=== PATIENT | male | born 1990 | race Caucasian/White ===

== ENCOUNTER 2016-07-08 23:43 | Emergency (ER) | payer BC, OTHER ==
[~2016-07-08] VITALS: Ht 175.3 cm; Wt 108.2 kg
[2016-07-08 23:47] VITALS: TEMP 36.9; Ht 175.3 cm; Wt 108.2 kg
[2016-07-09] MEDS ORDERED: SODIUM CHLORIDE 0.9% 1000ML 1,000 ML IV STA (00:41)
[2016-07-09 01:17] LABS: HEMATOCRIT 39.8 % (42-52); MEAN CELL VOLUME 81.4 fL (80-100); MEAN CORPUSCULAR HEMOGLOBIN 28.2 pg (25-34); MEAN CORPUSCULAR HGB CONC 34.7 g/dl (32-36); MEAN PLATELET VOLUME 9.3 fL (7.4-10.4); PLATELET COUNT 259 K/uL (130-400); RED BLOOD COUNT 4.89 M/uL (4.7-6.1); WHITE BLOOD COUNT 13.09 K/uL (4.8-10.8)
[2016-07-09] MEDS ORDERED: PRLSR20 PO (01:27)
[2016-07-09] MEDS ORDERED: CITA40TA12 PO (01:28)
[2016-07-09 01:38] LABS: BUN/CREATININE RATIO 11.4 (10-20); CALCIUM 8.8 mg/dl (8.5-10.1); CREATININE 0.97 mg/dl (0.60-1.40); POTASSIUM 4.3 mmol/L (3.5-5.1)
[2016-07-09 01:48] LABS: ALB/GLOB RATIO 0.8 (0.9-2); THYROID STIMULATING HORMONE 2.46 uIu/ml (0.300-4.500)
[2016-07-09 02:01] LABS: BASO ABS # 0.37 K/uL (0-0.2); BASOPHIL % 2.8 % (0-2); COMPLETE YES; EOSINOPHIL % 3.7 %; LYMPH ABS # 2.79 K/uL (1.2-3.4); LYMPHOCYTE % 21.3 %; MYELOCYTE % 0.9 %; NEUTROPHILS % 66.7 %
--- NOTE | 2016-07-09 02:12 | EMERGENCY ROOM VISIT NOTE ---
History First contact with patient: 23:55 Chief Complaint: FEVER Stated Complaint: HIGH FEVER,SORE THROAT FOR A WEEK History of Present Illness The patient is a 25 year old male who presents to the Emergency Department by private vehicle for evaluation of his fever, sore throat, and dizziness. He reports that he has felt not well since Monday. He started noticed fevers on Monday. He reports that he has developed a temperature in excess of 104F. He isn't having a sore throat as well as body aches and pains. The patient's fever has been responsive to ibuprofen and Tylenol. This evening, after an argument with his girlfriend, he became extremely dizzy. He reports that he has not felt right since. He's had persistent lightheadedness. He reports his daughter was sick with upper respiratory symptoms recently. He reports a history of anxiety and depression only. He denies any headaches, blurry vision , double vision, slurred speech, facial droop, unilateral weakness/numbness, chest pain, palpitations, short of breath, hemoptysis, nausea, vomiting, or abdominal pain. He rates his current discomfort as a 4/10. Review of Systems A complete 10-point Review of Systems was discussed with the patient, with pertinent positives and negatives listed in the History of Present Illness. All remaining Review of Systems questions can be considered negative unless otherwise specified. Social History Smoking Status: Never Smoker Smokeless Tobacco Use: No Drug Use: none Housing Status: lives with family Current/Historical Medications Scheduled Citalopram Hydrobromide (Celexa), 40 MG PO DAILY Omeprazole (Prilosec), 20 MG PO DAILY Allergies Coded Allergies: Amoxicillin (Verified Allergy, Mild, Hives, 07/08/16) Physical Exam Vital Signs Date Time Temp Pulse Resp B/P Pulse Ox O2 Delivery O2 Flow Rate FiO2 07/09/16 02:15 112 19 168/108 96 07/09/16 01:43 112 19 168/108 96 Room Air 07/09/16 00:56 117 19 162/105 97 Room Air 07/08/16 23:47 36.9 124 20 188/97 96 Room Air Pain Rating (0-10): 4 Physical Exam VITAL SIGNS - Vital signs and nursing notes were reviewed. GENERAL - Well nourished, well developed 25-year-old male in no acute distress. Pt communicates well with provider and answers questions appropriately. SKIN - Without rash. HEAD - NC/AT with no obvious deformities. EYES - PERRL with EOMI bilaterally. Sclera without injection. Palpebral conjunctiva pink and moist. EARS - No deformities of external structures noted on gross examination bilaterally. No pain elicited with palpation of the tragus bilaterally. External auditory canals without discharge or otorrhea. Tympanic membranes pearly portillo without retraction or bulging. No fluid or purulent material visualized behind the TM. Handle of malleus, umbo, cone of light, pars tensa/ flaccid all easily visualized. NOSE - Midline and without cyanosis. No purulent drainage noted. Nasal mucosa without mucus discharge. MOUTH/OROPHARYNX - Without perioral cyanosis. Buccal mucosa pink and moist and without leukoplakia. Tongue midline with equal elevation of palate bilaterally. No tonsillar hypertrophy, erythema, or exudates noted. Good dentition noted. NECK - Neck with FROM. Supple to palpation. No lymphadenopathy noted. No nuchal rigidity. LUNGS - Chest wall symmetric without accessory muscle use, intercostals retractions, or central cyanosis. Normal vesicular breath sounds CTA B/L. No wheezes, rales, or rhonchi appreciated. CARDIAC - RRR with S1/S2. No murmur, rubs, or gallops appreciated. ABDOMEN - Abdominal contour flat without pulsations or visible masses. BS normoactive all four quadrants. No tenderness, palpable masses, hepatosplenomegaly, or ascites noted. Medical Decision & Procedures Laboratory Results 07/09/16 00:50 Red Blood Count 4.89, Mean Corpuscular Volume 81.4, Mean Corpuscular Hemoglobin 28.2, Mean Corpuscular Hemoglobin Concent 34.7, Mean Platelet Volume 9.3 07/09/16 00:50 Test 07/09/16 00:35 07/09/16 00:50 Influenza Type A Antigen Neg for Influ A (NEG) Influenza Type B Antigen Neg for Influ B (NEG) White Blood Count 13.09 K/uL (4.8-10.8) Red Blood Count 4.89 M/uL (4.7-6.1) Hemoglobin 13.8 g/dL (14.0-18.0) Hematocrit 39.8 % (42-52) Mean Corpuscular Volume 81.4 fL (80-100) Mean Corpuscular Hemoglobin 28.2 pg (25-34) Mean Corpuscular Hemoglobin Concent 34.7 g/dl (32-36) Platelet Count 259 K/uL (130-400) Mean Platelet Volume 9.3 fL (7.4-10.4) RDW Standard Deviation 39.2 fL (36.4-46.3) RDW Coefficient of Variation 13.0 % (11.5-14.5) Neutrophils % (Manual) 66.7 % Lymphocytes % (Manual) 21.3 % Monocytes % (Manual) 4.6 % Eosinophils % (Manual) 3.7 % Basophils % (Manual) 2.8 % (0-2) Myelocytes % 0.9 % Neutrophils # (Manual) 8.73 K/uL (1.4-6.5) Total Absolute Neutrophils 8.73 K/uL (1.4-6.5) Lymphocytes # (Manual) 2.79 K/uL (1.2-3.4) Total Absolute Lymphocytes 2.79 K/uL (1.2-3.4) Monocytes # (Manual) 0.60 K/uL (0.11-0.59) Eosinophils # (Manual) 0.48 K/uL (0-0.5) Basophils # (Manual) 0.37 K/uL (0-0.2) Myelocytes # 0.12 K/uL (0-0) Red Blood Cell Morphology Unremarkable Anion Gap 9.0 mmol/L (3-11) Est Creatinine Clear Calc Drug Dose 141.1 ml/min Estimated GFR () 125.2 Estimated GFR (Non- 108.1 BUN/Creatinine Ratio 11.4 (10-20) Calcium Level 8.8 mg/dl (8.5-10.1) Total Bilirubin 0.2 mg/dl (0.2-1) Aspartate Amino Transf (AST/SGOT) 13 U/L (15-37) Alanine Aminotransferase (ALT/SGPT) 27 U/L (12-78) Alkaline Phosphatase 100 U/L (45-117) Total Protein 7.9 gm/dl (6.4-8.2) Albumin 3.6 gm/dl (3.4-5.0) Globulin 4.3 gm/dl (2.5-4.0) Albumin/Globulin Ratio 0.8 (0.9-2) Thyroid Stimulating Hormone (TSH) 2.460 uIu/ml (0.300-4.500) Date/Time Source Procedure Growth Status 07/09/16 00:35 Throat Group A Streptococcus Screen - Final SPECIMEN NEGATIVE FOR GROUP A BETA ST... Complete 07/09/16 00:35 Throat Group A Streptococcus Screen ([facility]) - Final NO GROUP A BETA STREP ISOLATED. Complete Medications Administered Medications (Trade) Dose Ordered Sig/Haroldo Route Start Time Stop Time Status Last Admin Dose Admin Sodium Chloride (Nss 1000ml) 1,000 ml @ 999 mls/hr Q1H1M STAT IV 07/09/16 00:41 07/09/16 01:41 DC 07/09/16 00:54 999 MLS/HR ED Course Patient was seen and evaluated by myself. Labs were drawn, saline lock in place. Influenza and strep swabs were obtained. Patient was hydrated with a 1000 mL normal saline bolus. Laboratory results demonstrate no acute leukocytosis, worrisome anemia, or bandemia. The patient has no significant electrolyte abnormalities. Rapid strep and RSV were negative. Patient was reevaluated and reports feeling much better at this time. The patient was instructed to follow-up with his primary care provider from today's visit. He was educated on worrisome symptoms for return visit to the emergency department. Patient discharged home afebrile and in good condition. Medical Decision Given the patient's presentation and stated complaints, I did elect to perform the above-mentioned workup. The patient presents today with a febrile illness. He has no fever on presentation. His exam is otherwise unremarkable. He has no meningeal findings. Influenza and strep were negative. Patient feels much better at this time. The patient was encouraged to follow-up with his primary care provider from today's visit. He was educated on worrisome symptoms for return visit to the emergency department. Patient discharged home in good condition. In the evaluation and treatment of this patient, the following differential diagnoses were considered: Strep, mono, pneumonia, bronchitis, meningitis, encephalitis, viral URI, amongst others. Impression Primary Impression: Febrile illness Additional Impressions: Sore throat Dizziness Departure Information Dispostion Home / Self-Care Condition GOOD Referrals No Doctor, Assigned (PCP) Patient Instructions My [facility] Additional Instructions You have been seen in the emergency department today for a febrile illness. Continue your [id number] medications as discussed. For pain/fever control, you can use the following [id number]-kepawpz medicines ( if >12 yo): - Regular strength (325mg/tab) Tylenol (acetaminophen) 2 tabs every 4-6 hours as needed. Do not exceed 12 tablets in a 24 hour period. Avoid taking more than 4 grams (4000 mg) of Tylenol per day. This includes any other sources of acetaminophen you may take on a regular basis. - Regular strength (200 mg/tab) Advil (ibuprofen) 1-2 tabs every 4-6 hours as needed. Do not exceed a dose of 3200 mg per day. Follow-up with your primary care provider for continued symptom management as well as blood pressure recheck. Return for any changing or worsening symptoms. Problem Qualifiers
[2016-07-09 02:15] VITALS: BP 168/108; PULSE 112; O2SAT 96
== END 2016-07-09 02:19 | disposition home or self-care (01) ==
LOC: C.EDB 23:45
DX: J02.9 Acute pharyngitis, unspecified (principal); R42 Dizziness and giddiness; Z79.899 Other long term (current) drug therapy; Z88.1 Allergy status to other antibiotic agents

== ENCOUNTER 2017-06-09 02:26 | Emergency (ER) | payer BC, OTHER ==
[~2017-06-09] VITALS: Ht 172.7 cm; Wt 110.9 kg
[~2017-06-09 02:26] MED LIST: CITA40TA12 PO; PRLSR20 PO
[2017-06-09 02:28] VITALS: TEMP 37; Ht 172.7 cm; Wt 110.9 kg
--- NOTE | 2017-06-09 02:46 | EMERGENCY ROOM VISIT NOTE ---
History Report prepared by Francisco: Margaux Maldonado Under the Supervision of: Dr. Jung Delcid M.D. First contact with patient: 02:34 Chief Complaint: FEVER Stated Complaint: REALLY HIGH FEVER - 106 History of Present Illness The patient is a 26 year old male who presents to the Emergency Room with complaints of a fever beginning 24 hours ago. The patient states that he was febrile at 105.4. He states that he took 3 tablets of Motrin and 2 tablets of Tylenol for his symptoms. He states that he has had a headache, cough, body aches and chills, but denies having nausea, vomiting, and back pain. The patient states that he did not get a flu shot this year, and denies being on antibiotics recently. Source of History: patient Onset: 24 hours ago Position: other (global) Quality: other (fever) Associated Symptoms: + chills, + headache, + cough, No nausea, No vomiting, No back pain Note: additional symptom: body aches Review of Systems See HPI for pertinent positives & negatives. A total of 10 systems reviewed and were otherwise negative. Family History FHx: heart disease Hypertension Social History Smoking Status: Never Smoker Drug Use: none Marital Status: in relationship Housing Status: lives with family Current/Historical Medications Scheduled Citalopram Hydrobromide (Celexa), 40 MG PO DAILY Oseltamivir (Tamiflu), 75 MG PO BID Scheduled PRN Acetaminophen (Tylenol), 1,000 MG PO Q4 PRN for Pain or Fever Ibuprofen (Advil), 200-600 MG PO Q4H PRN for Pain or Fever Omeprazole (Prilosec), 20 MG PO DAILY PRN for Heartburn Allergies Coded Allergies: Amoxicillin (Verified Allergy, Mild, Hives, 06/09/17) Physical Exam Vital Signs Date Time Temp Pulse Resp B/P (MAP) Pulse Ox O2 Delivery O2 Flow Rate FiO2 06/09/17 03:06 118 20 169/100 97 06/09/17 02:28 37.0 127 20 180/77 95 Room Air Physical Exam GENERAL: Patient is well appearing and in minimal acute distress. HEENT: No acute trauma, normocephalic atraumatic, mucous membranes moist, nasal rhinorrhea bilaterally, no scleral icterus. NECK: No stridor, no adenopathy, no meningismus, trachea is midline. LUNGS: No dyspnea. Clear to auscultation and equal bilaterally. No wheeze, no rhonchi. HEART: Mildly tachycardic, normal rhythm. No murmurs, rubs, gallops appreciated. ABDOMEN: Soft, nontender, bowel sounds positive, no masses appreciated, no peritonitis. BACK: No midline tenderness, no CVA tenderness EXTREMITIES: Normal motion all extremities, no cyanosis, no edema. NEUROLOGIC: Alert and oriented, no acute motor or sensory deficits, no focal weakness, cranial nerves grossly intact. SKIN: No rash, no jaundice, mild diaphoresis. Medical Decision & Procedures Medications Administered Medications (Trade) Dose Ordered Sig/Haroldo Route Start Time Stop Time Status Last Admin Dose Admin Oseltamivir Phosphate (Tamiflu Cap) 75 mg NOW STAT PO 06/09/17 02:53 06/09/17 03:00 DC 06/09/17 03:01 75 MG ED Course 0245: The patient was evaluated in room B8. A complete history and physical exam was performed. 0330: Reevaluated the patient. Discussed results and discharge instructions: He verbalized understanding and agreement. The patient is ready for discharge. Medical Decision Differential: Viral, Pharyngitis, Cellulitis, Pneumonia, Influenza, Meningitis, Sepsis, Bacteremia, UTI/Pyelonephritis, Endocrine, Toxicologic, amongst other pathologies entertained. 26 yr old male with fevers, chills, body aches, cough, sore throat, runny nose, headache over last 24 hours consistent with influenza. Given classic flu like nature without findings of meningitis, pneumonia, intrabdominal infection, strep , abscess or other acute cause of fever I feel this is likely influenza. I do not feel testing necessary. Given symptoms seems reasonable starting Tamiflu as he has child with cardiac condition and wants to limit symptoms as much as possible. Reviewed symptoms requiring RTED. Medication Reconcilliation Current Medication List: was personally reviewed by me Blood Pressure Screening Patient's blood pressure: Elevated blood pressure Blood pressure disposition: Elevated BP felt to be situational Impression Primary Impression: Influenza Scribe Attestation The scribe's documentation has been prepared under my direction and personally reviewed by me in its entirety. I confirm that the note above accurately reflects all work, treatment, procedures, and medical decision making performed by me. Departure Information Dispostion Home / Self-Care Prescriptions Oseltamivir (Tamiflu) 75 Mg Cap 75 MG PO BID, #10 CAP Prov: Jung Delcid M.D. 06/09/17 Referrals No Doctor, Assigned (PCP) Forms HOME CARE DOCUMENTATION FORM, IMPORTANT VISIT INFORMATION Patient Instructions ED Flu, My [facility] Additional Instructions Keep well hydrated, use Tylenol/Motrin as needed. Your blood pressure was elevated during this visit. This is quite common in many people who are being evaluated in the Emergency Department for many reasons. However, it is important that you have your Primary Care Provider recheck your blood pressure and discuss whether treatment will be needed. termite helper elevated blood pressure can lead to strokes, heart attacks, kidney failure amongst other medical issues. If you develop severe headaches, chest pain, weakness in arms or legs, or other concerning symptoms call 911.
[2017-06-09] MEDS ORDERED: ACET-1256 PO (02:52)
[2017-06-09] MEDS ORDERED: IBUP-1050 PO (02:52)
[2017-06-09] MEDS ORDERED: OSELTAMIVIR PHOSPHATE 75 MG CAP PO STA (02:53)
[2017-06-09] MEDS ORDERED: OSEL75CA12 PO (02:56)
[2017-06-09 03:06] VITALS: BP 169/100; PULSE 118; O2SAT 97
== END 2017-06-09 03:07 | disposition home or self-care (01) ==
LOC: C.EDB 02:27
DX: J11.1 Influenza due to unidentified influenza virus with other respiratory manifestations (principal); Z82.49 Family history of ischemic heart disease and other diseases of the circulatory system; Z88.1 Allergy status to other antibiotic agents

== ENCOUNTER 2024-08-11 18:05 | Inpatient (IN) ==
--- NOTE | 2024-08-11 19:03 | Emergency Department Note ---
Impression & Plan Diverticulitis, Uncontrolled pain ED Provider Note CHIEF COMPLAINT: Abdominal pain HISTORY OF PRESENTING ILLNESS: Patient is a 33-year-old male who presents to the emergency department today for evaluation of abdominal pain. He reports pain in the left lower quadrant. He does have a history of diverticulitis, he states this feels similar to his typical flareups but worse than normal. He states yesterday he was dehydrated and not drinking much. He denies any recent food changes. He reports an episode of diarrhea 24 hours ago but has not had a bowel movement since. He denies any nausea and vomiting. He denies chest pain, sob, breathing difficulties, abdominal pain, headache, fevers/chills, blood in stool or urine, any recent illness, or any recent travel. REVIEW OF SYSTEMS: See HPI for pertinent positives and pertinent negatives. ALLERGIES: Amoxicillin, Vicodin (not a true allergy, causes nausea) MEDICATIONS: See below PAST MEDICAL HISTORY: See below PHYSICAL EXAM: VITAL SIGNS - Vital signs and nursing notes were reviewed. GENERAL -30-year-old male appearing his stated age who is in no acute distress. Communicates well with provider and answers questions appropriately. EYES - PERRL with EOMI bilaterally. MOUTH/OROPHARYNX - Without perioral cyanosis. Buccal mucosa pink and moist and without leukoplakia. LUNGS - Chest wall symmetric without accessory muscle use, intercostals retractions, or central cyanosis. Normal vesicular breath sounds CTA B/L. No wheezes, rales, or rhonchi appreciated. CARDIAC - RRR with S1/S2. No murmur, rubs, or gallops appreciated. ABDOMEN - Abdominal contour is without pulsations or visible masses. Negative Cullens or Kenney Turners Signs. BS normoactive all four quadrants. Increase tenderness to palpation appreciated left lower quad. No guarding. No rebound Tenderness. Negative Vovsings. Negative Florence. No palpable masses, hepatosplenomegaly, or ascites noted. DIFFERENTIAL DIAGNOSIS: Differential diagnosis includes appendicitis, diverticulitis, bowel obstruction, inflammatory bowel disease, renal colic, PUD, biliary pathology, pancreatitis, mesenteric ischemia, aortic pathology, infection, genitourinary, UTI, perforated viscus, among others. ED COURSE AND MEDICAL DECISION MAKING: HISTORY FROM INDEPENDENT HISTORIAN: History was provided by the patient and his father who is at bedside. I examined the patient for complaints of abdominal pain with a history of diverticulitis. A physical exam and history were performed. Nursing notes, EMR, and medication list were personally reviewed. MEDICATIONS GIVEN: An IV lock was placed. The patient was given Tylenol 1 g IV and had improvement with pain. Within an hour the patient reports the pain returned. I considered the use of narcotics on this patient and give the patient morphine 4 mg and had significant improvement with the pain. The patient was also given Zofran 4 mg with improvement in nausea. The patient was also given 2 L of normal saline. The patient was then given 10mg of toradol due to the pain worsening again. Patient was started on Cipro 400mg IV and Flagyl IV in the ED. MONITOR: Continuous quality assurance monitor: Order was placed for continuous quality assurance monitor. Patient was placed on the quality assurance monitor and continuous pulse ox. Patient was noted to be in normal sinus rhythm at an initial rate of 90 bpm per my interpretation. INTERPRETATION OF LABS: An IV lock was placed and labs were drawn. I interpreted the labs with full lab results as below in the lab section of this note. Laboratory results pertinent to the emergent complaint are discussed in the MDM section below. The patient was advised to follow up with their PCP and/or specialist(s) for further outpatient monitoring and management of any abnormal results. There was no anemia, thrombocytopenia. The patient's white count was 18.06. Patient sodium was 133, chloride 94 BUN 24. He was given 2 L of normal saline. The urinalysis was negative for leukocytes, nitrates, bacteria. INTERPRETATION OF IMAGING: Imaging studies were interpreted by myself and read by radiology as per the imaging section of this note. The patient was advised to follow up with their PCP and/or specialist(s) for further outpatient management of any non-emergent abnormal findings. The CT scan of the abdomen and pelvis showed colonic and sigmoid sclerosis with mild sigmoid diverticulitis without abscess. CHRONIC MEDICAL/SOCIAL CONDITIONS AFFECTING CARE: No social concerns were identified as barriers to patients care. ESCALATION OF CARE CONSIDERED: I considered admission on this patient due to uncontrolled pain. CONSULTATIONS: I had a meaningful discussion about this patient with Dr. Guzman who agrees with my assessment and the treatment plan. SUMMARY: Patient was evaluated in the emergency department for complaints of abdominal pain in the left lower quad that had moved to the mid groin. Patient was in a significant amount of pain rating it at an 8 out of 10. He was treated with 1 g of Tylenol IV which was effective for short period of time. Patient was then given 4 mg of morphine that was also effective but only for short time. Patient wanted to try something less the morphine so he had 10 mg of Toradol IV that was also effective but again only for short time. There was no anemia, thrombocytopenia. The patient's white count was 18.06. Patient sodium was 133, chloride 94 BUN 24. He was given 2 L of normal saline. The urinalysis was negative for leukocytes, nitrates, bacteria. The CT scan of the abdomen and pelvis showed colonic and sigmoid sclerosis with mild sigmoid diverticulitis without abscess. I had the hospitalist paged for admission for this patient. At 2330 I signed the patient out to GILDARDO Smith. At the time of signout we were waiting for the hospitalist to call back for admission. The patient is to have close outpatient follow-up with a recheck of their symptoms. To return to the ER sooner for any significantly changing or worsening symptoms. The patient was educated on the treatment plan and the discharge instructions. The patient was discharged home in stable condition and verbalized understanding of all discharge instructions and treatment plan. DIAGNOSIS: Diverticulitis TREATMENT PLAN/DISCHARGE INSTRUCTIONS: Admit to [facility] Past Med/Surg History Problem List (Updated 08/12/24 @ 13:03 by GILDARDO Ferrari) Diverticulitis (Acute) Uncontrolled pain (Acute) Acute diverticulitis Hypertension Stomach problems (Acute) Medical History (Updated 08/12/24 @ 13:03 by GILDARDO Ferrari) No pertinent past medical history Surgical History (Updated 06/04/24 @ 13:27 by Zeferino Velasco LPN) H/O anterior cruciate ligament surgery Family History Other No significant family history Social History Smoking Status: Never smoker Hx Alcohol Use: Yes Alcohol type: beer and hard liquor Hx Substance Use: No Preferred Language: Uzbek [employer] Service Team Member Required: No Beliefs That Will Affect Care: None Current Living Situation: Spouse current occupational status: employed current occupation: [employer] Other Information That Helps Us Care for You: No Feels Safe at Home: Yes Safety Concerns: Feels Safe At This Time Allergies Allergies Allergy/AdvReac Type Severity Reaction Status Date / Time amoxicillin Allergy Mild Hives Verified 06/04/24 13:01 hydrocodone [From Vicodin] AdvReac Nausea Unverified 06/04/24 13:01 Home Meds Home Medications Medication Instructions Recorded Confirmed omeprazole 20 mg tablet,delayed 20 mg PO DAILY 01/05/18 08/12/24 release dextroamphetamine-amphetamine ER 30 mg PO DAILY PRN adhd 06/05/24 08/12/24 30 mg 24hr capsule,extend release lisinopril 5 mg tablet 5 mg PO DAILY 06/05/24 08/12/24 Results & Data (ED) Vital Signs Vital Signs - 24 hr 08/11/24 18:07 08/11/24 19:00 08/11/24 20:05 Temperature 36.4 C L Temperature Source Oral Pulse Rate 98 H Pulse Rate [Right Brachial] 94 H Pulse Rhythm [Right Brachial] Regular Pulse Strength [Right Brachial] Normal Respiratory Rate 20 19 Respiratory Effort / Characteristics Non-Labored Non-Labored Respiratory Depth Normal Normal Respiratory Pattern Regular Blood Pressure 120/61 Blood Pressure [Right Arm] 140/77 Blood Pressure Mean 80 Blood Pressure Mean [Right Arm] 98 Blood Pressure Position [Right Arm] Lying Pulse Oximetry 100 98 98 Oxygen Delivery Method Room Air Room Air Room Air Sepsis Recent Fever Within 48 Hours No Sepsis New/Unexplained Change in Mental Status No Sepsis Action Taken by Nursing No Action Required 08/11/24 22:00 08/11/24 23:47 08/11/24 23:52 Temperature 36.5 C Temperature Source Oral Pulse Rate 100 H Pulse Rate [Right Brachial] 99 H 98 H Pulse Rhythm [Right Brachial] Regular Pulse Strength [Right Brachial] Normal Respiratory Rate 16 18 Respiratory Effort / Characteristics Non-Labored Non-Labored Spontaneous Respiratory Depth Normal Respiratory Pattern Regular Regular Blood Pressure Blood Pressure [Right Arm] 117/77 119/71 Blood Pressure Mean Blood Pressure Mean [Right Arm] 90 87 Blood Pressure Position [Right Arm] Lying Lying Pulse Oximetry 95 94 Oxygen Delivery Method Room Air Room Air Sepsis Recent Fever Within 48 Hours Sepsis New/Unexplained Change in Mental Status Sepsis Action Taken by Nursing Laboratory Data 08/12/24 06:15 08/12/24 06:15 Lab Results 08/11/24 Range/Units 19:13 WBC 18.06 H (4.8-10.8) K/ul RBC 4.85 (4.70-6.10) M/uL Hgb 13.8 L (14.0-18.0) g/dl Hct 40.1 L (42.0-52.0) % MCV 82.7 (80.0-100.0) fL MCH 28.5 (25.0-34.0) pg MCHC 34.4 (32.0-36.0) g/dL RDW Std Deviation 38.4 (36.4-46.3) fL RDW Coeff of Renetta 12.7 (11.5-14.5) % Plt Count 299 (130-400) K/uL MPV 9.5 (9.4-12.4) fL Immature Gran % (Auto) 1.0 % Neut % (Auto) 71.7 % Lymph % (Auto) 16.9 % V[place] % (Auto) 7.9 % Eos % (Auto) 2.1 % Baso % (Auto) 0.4 % Neut # (Auto) 12.93 H (1.40-6.50) K/uL Lymph # (Auto) 3.06 (1.20-3.40) K/uL V[place] # (Auto) 1.43 H (0.11-0.59) K/uL Eos # (Auto) 0.38 (0.00-0.50) K/uL Baso # (Auto) 0.08 (0.00-0.20) K/uL Immature Gran # (Auto) 0.18 (0.01-0.20) K/uL Sodium 133 L (136-145) mmol/L Potassium 4.0 (3.5-5.1) mmol/L Chloride 97 L (98-107) mmol/L Carbon Dioxide 30 (21-32) mmol/L Anion Gap 6 (3-11) BUN 24 H (6-23) mg/dl Creatinine 1.13 (0.6-1.4) mg/dl Est Cr Clr Drug Dosing 108.6 ml/min eGFR 88.01 BUN/Creatinine Ratio 21.2 H (10-20) Glucose 157 H (70-99(Fasting)) mg/dl Calcium 9.2 (8.6-10.3) mg/dl Total Bilirubin 0.5 (0.2-1.0) mg/dl AST 26 (13-39) U/L ALT 27 (7-52) U/L Alkaline Phosphatase 67 (34-104) U/L Total Protein 6.9 (6.0-8.3) gm/dl Albumin 4.3 (3.4-5.0) gm/dl Globulin 2.6 (2.5-4.0) gm/dl Albumin/Globulin Ratio 1.7 (0.9-2) Lipase 72 (11-82) U/L Administered Medications Pantoprazole Sodium (Protonix) 40 mg in 10 mls @ 5 mls/min IV DAILY ABIGAIL Stop: 09/11/24 08:59 Last Admin: 08/13/24 08:27 Dose: 5 mls/min Documented By: Admin: 08/12/24 08:42 Dose: 5 mls/min Documented By: HRB Ciprofloxacin (Cipro / D5w) 400 mg in 200 mls @ 100 mls/hr IV Q12H ABIGAIL; Protocol Stop: 08/22/24 10:59 Last Infusion: 08/13/24 00:09 Dose: Infused Documented By: Admin: 08/12/24 22:08 Dose: 100 mls/hr Documented By: Infusion: 08/12/24 13:50 Dose: Infused Documented By: Admin: 08/12/24 11:39 Dose: 100 mls/hr Documented By: HRB Metronidazole (Flagyl) 500 mg in 100 mls @ 100 mls/hr IV Q8H ABIGAIL; Protocol Stop: 08/22/24 07:59 Last Admin: 08/13/24 08:27 Dose: 100 mls/hr Documented By: RRMeghana Infusion: 08/13/24 01:17 Dose: Infused Documented By: Admin: 08/13/24 00:09 Dose: 100 mls/hr Documented By: Infusion: 08/12/24 17:25 Dose: Infused Documented By: Admin: 08/12/24 16:20 Dose: 100 mls/hr Documented By: Infusion: 08/12/24 09:51 Dose: Infused Documented By: Admin: 08/12/24 08:42 Dose: 100 mls/hr Documented By: HRB Ketorolac Tromethamine (Ketorolac Tromethamine 15 Mg/Ml Vial) 10 mg IV Q6H PRN PRN Reason: Pain Stop: 08/17/24 02:53 Last Admin: 08/12/24 19:42 Dose: 10 mg Documented By: Admin: 08/12/24 13:43 Dose: 10 mg Documented By: Admin: 08/12/24 06:14 Dose: 10 mg Documented By: LETI Morphine Sulfate (Morphine Sulfate 4 Mg/Ml 1 Ml Carp\Vial) 4 mg IV Q6H PRN PRN Reason: Severe Pain (Scale 7, 8, 9,10) Stop: 08/26/24 02:53 Last Admin: 08/12/24 09:27 Dose: 4 mg Documented By: B Admin: 08/12/24 03:13 Dose: 4 mg Documented By: LETI Oxycodone HCl (Oxycodone Hcl Ir 5 Mg Tab (Immediate Release)) 5 mg PO Q4H PRN PRN Reason: Pain Stop: 08/26/24 10:30 Last Admin: 08/13/24 06:35 Dose: 5 mg Documented By: Admin: 08/13/24 00:32 Dose: 5 mg Documented By: ELAINA Sennosides (Senna 8.6 Mg Tab) 17.2 mg PO QAM ABIGAIL Stop: 09/11/24 15:44 Last Admin: 08/13/24 08:27 Dose: 17.2 mg Documented By: Admin: 08/12/24 15:55 Dose: 17.2 mg Documented By: B Discontinued Medications Sodium Chloride (Nss) 1,000 mls @ 999 mls/hr IV .Q1H1M STA Stop: 08/11/24 20:00 Last Infusion: 08/11/24 20:37 Dose: Infused Documented By: Admin: 08/11/24 19:32 Dose: 999 mls/hr Documented By: RAMIN Acetaminophen (Ofirmev) 1,000 mg in 100 mls @ 400 mls/hr IV NOW STA Stop: 08/11/24 19:14 Last Infusion: 08/11/24 19:53 Dose: Infused Documented By: Admin: 08/11/24 19:32 Dose: 400 mls/hr Documented By: RAMIN Sodium Chloride (Nss) 1,000 mls @ 999 mls/hr IV .Q1H1M ONE Stop: 08/11/24 22:10 Last Infusion: 08/11/24 22:40 Dose: Infused Documented By: Admin: 08/11/24 21:23 Dose: 999 mls/hr Documented By: RAMIN Ciprofloxacin (Cipro / D5w) 400 mg in 200 mls @ 200 mls/hr IV NOW STA Stop: 08/12/24 00:27 Last Infusion: 08/12/24 00:53 Dose: Infused Documented By: Admin: 08/11/24 23:51 Dose: 200 mls/hr Documented By: MARTY Metronidazole (Flagyl) 500 mg in 100 mls @ 100 mls/hr IV NOW STA; Protocol Stop: 08/12/24 00:27 Last Infusion: 08/12/24 00:54 Dose: Infused Documented By: Admin: 08/11/24 23:51 Dose: 100 mls/hr Documented By: MARTY Lactated Ringer's (Lr) 1,000 mls @ 150 mls/hr IV .Q6H40M [facility] Stop: 08/12/24 21:11 Last Infusion: 08/12/24 22:15 Dose: Infused Documented By: Admin: 08/12/24 15:53 Dose: 150 mls/hr Documented By: Infusion: 08/12/24 15:47 Dose: Infused Documented By: Admin: 08/12/24 08:42 Dose: 150 mls/hr Documented By: Infusion: 08/12/24 08:40 Dose: Infused Documented By: Infusion: 08/12/24 03:00 Dose: 150 mls/hr Documented By: Admin: 08/12/24 00:58 Dose: 100 mls/hr Documented By: MARTY Acetaminophen (Ofirmev) 1,000 mg in 100 mls @ 400 mls/hr IV Q8 [facility] Stop: 08/15/24 03:59 Last Infusion: 08/12/24 04:19 Dose: Infused Documented By: Admin: 08/12/24 03:12 Dose: 400 mls/hr Documented By: LETI Magnesium Sulfate/Dextrose (Magnesium Sulfate / D5w) 1 gm in 100 mls @ 50 mls/hr IV Q2H [facility] Stop: 08/12/24 12:14 Last Infusion: 08/12/24 13:50 Dose: Infused Documented By: Admin: 08/12/24 11:39 Dose: 50 mls/hr Documented By: Infusion: 08/12/24 11:39 Dose: Infused Documented By: Admin: 08/12/24 09:30 Dose: 50 mls/hr Documented By: REX Ioversol (Optiray 320 100ml) 90 ml IV ONCE ONE Stop: 08/11/24 20:15 Last Admin: 08/11/24 20:15 Dose: 90 ml Documented By: STEVE Ketorolac Tromethamine (Ketorolac Tromethamine 15 Mg/Ml Vial) 10 mg IV NOW ONE Stop: 08/11/24 22:37 Last Admin: 08/11/24 22:43 Dose: 10 mg Documented By: RAMIN Morphine Sulfate (Morphine Sulfate 4 Mg/Ml 1 Ml Carp\Vial) 4 mg IV NOW STA Stop: 08/11/24 21:11 Last Admin: 08/11/24 21:22 Dose: 4 mg Documented By: RAMIN Ondansetron HCl (Ondansetron Inj 2 Mg/Ml 2 Ml Vial) 4 mg IV NOW STA Stop: 08/11/24 19:01 Last Admin: 08/11/24 19:32 Dose: Not Given Documented By: RAMIN Ondansetron HCl (Ondansetron Inj 2 Mg/Ml 2 Ml Vial) 4 mg IV NOW STA Stop: 08/11/24 21:11 Last Admin: 08/11/24 21:22 Dose: 4 mg Documented By: RAMIN Imaging Data Radiologist's Impression: Abdomen/Pelvis CT 08/11/24 19:00 Exam(s): CT ABDOMEN + PELVIS With Contrast IV Amt: optiray 320 90ml EXAM: CT Abdomen and Pelvis With Intravenous Contrast CLINICAL HISTORY: Reason for exam: abd pain, hx diverticulitis. TECHNIQUE: Axial computed tomography images of the abdomen and pelvis with intravenous contrast. CTDI is 27.81 mGy and DLP is 1475.49 mGy-cm. Automated exposure control was utilized for the study. A dose lowering technique was utilized adhering to the principles of ALARA. CONTRAST: Patient received optiray 320 90ml of IV contrast COMPARISON: CT abdomen/pelvis: 06/05/2024 FINDINGS: Image quality is somewhat degraded by motion artifact. Lung bases: Posteriorly subpleural mild atelectatic changes.. No mass. No consolidation. ABDOMEN: Liver: Mild steatosis. No mass. Gallbladder and bile ducts: Unremarkable. No calcified stones. No ductal dilation. Pancreas: Unremarkable. Absence of pancreatic tail. No mass. No ductal dilation. Spleen: Unremarkable. No splenomegaly. Adrenals: A 1.5 cm small incidental left adrenal adenoma. No right adrenal mass. Kidneys and ureters: Unremarkable. No solid mass. No hydronephrosis. Stomach and bowel: Unremarkable stomach and small bowel. Moderately increased colonic stool volume. Distal colonic/sigmoid diverticulosis coli. Redemonstrates proximal sigmoid wall thickening with perisigmoid fat stranding/mild uncomplicated acute diverticulitis. No obstruction. PELVIS: Appendix: No findings to suggest acute appendicitis. Bladder: A distended urinary bladder. No mass. Reproductive: Unremarkable as visualized. ABDOMEN and PELVIS: Intraperitoneal space: No free air. No significant fluid collection. Bones/joints: No acute fracture. No dislocation. Mild/moderate lumbar levoscoliosis. Soft tissues: Unremarkable. Vasculature: Unremarkable. No abdominal aortic aneurysm. Lymph nodes: Unremarkable. No enlarged lymph nodes. IMPRESSION: Colonic/sigmoid sclerosis with mild sigmoid diverticulitis. No abscess. . Electronically signed by: Dinesh Barraza MD, ABEBA 08/11/24 22:48 PM Discharge Plan Visit Data Chief Complaint: GI Assessment Stated Complaint: DIVERTICULITIS FLARE ED Provider: Neymar Guzman ED Midlevel Provider: Demetra Torres Discharge Problem: Diverticulitis, Uncontrolled pain Patient Disposition: Admitted As Inpatient Condition: Good Discharge Instructions Interventions: ED Discharge Assessment Last Done: 08/12/24 02:30
[2024-08-11 19:26] LABS: Basophils # (auto) 0.08 K/uL (0.00-0.20); Basophils % (auto) 0.4 %; Eosinophils # (auto) 0.38 K/uL (0.00-0.50); Eosinophils % (auto) 2.1 %; Hematocrit (blood only) 40.1 % (42.0-52.0); Hemoglobin 13.8 g/dl (14.0-18.0); Immature Granulocytes # (auto) 0.18 K/uL (0.01-0.20); Lymphocytes # (auto) 3.06 K/uL (1.20-3.40); Lymphocytes % (auto) 16.9 %; Mean Corpuscular Hemoglobin 28.5 pg (25.0-34.0); Mean Corpuscular Hgb Conc 34.4 g/dL (32.0-36.0); Mean Corpuscular Volume 82.7 fL (80.0-100.0); Mean Platelet Volume 9.5 fL (9.4-12.4); Monocytes # (auto) 1.43 K/uL (0.11-0.59); Monocytes % (auto) 7.9 %; Neutrophils # (auto) 12.93 K/uL (1.40-6.50); Neutrophils % (auto) 71.7 %; Platelet Count 299 K/uL (130-400); RDW Coefficient of Variation 12.7 % (11.5-14.5); RDW Standard Deviation 38.4 fL (36.4-46.3); Red Blood Count 4.85 M/uL (4.70-6.10); White Blood Count 18.06 K/ul (4.8-10.8)
[2024-08-11] MEDS: ACETAMINOPHEN 1,000 MG/100 ML VIAL IV STA (19:32)
[2024-08-11] MEDS: ONDANSETRON INJ 2 MG/ML 2 ML VIAL IV STA ×2 (19:32→21:22)
[2024-08-11] MEDS: SODIUM CHLORIDE 0.9% 1,000 ML IV STA (19:32)
[2024-08-11 19:47] LABS: Albumin Globulin Ratio 1.7 (0.9-2); Albumin Level 4.3 gm/dl (3.4-5.0); BUN Creatinine Ratio 21.2 (10-20); Bilirubin,Total 0.5 mg/dl (0.2-1.0); Calcium 9.2 mg/dl (8.6-10.3); Creatinine Clr Calc Pharmacy 108.6 ml/min; Globulin 2.6 gm/dl (2.5-4.0); Total Protein 6.9 gm/dl (6.0-8.3)
[2024-08-11] MEDS: OPTIRAY 320 100ml IV ONE (20:15)
[2024-08-11] MEDS: MoRPHine SULFATE 4 MG/ML 1 ML CARP\\VIAL IV STA (21:22)
[2024-08-11] MEDS: SODIUM CHLORIDE 0.9% 1,000 ML IV ONE (21:23)
[2024-08-11] MEDS: KETOROLAC TROMETHAMINE 15 MG/ML VIAL IV ONE (22:43)
--- NOTE | 2024-08-11 22:49 | CT Scan Report ---
Exam(s): CT ABDOMEN + PELVIS With Contrast IV Amt: optiray 320 90ml EXAM: CT Abdomen and Pelvis With Intravenous Contrast CLINICAL HISTORY: Reason for exam: abd pain, hx diverticulitis. TECHNIQUE: Axial computed tomography images of the abdomen and pelvis with intravenous contrast. CTDI is 27.81 mGy and DLP is 1475.49 mGy-cm. Automated exposure control was utilized for the study. A dose lowering technique was utilized adhering to the principles of ALARA. CONTRAST: Patient received optiray 320 90ml of IV contrast COMPARISON: CT abdomen/pelvis: 06/05/2024 FINDINGS: Image quality is somewhat degraded by motion artifact. Lung bases: Posteriorly subpleural mild atelectatic changes.. No mass. No consolidation. ABDOMEN: Liver: Mild steatosis. No mass. Gallbladder and bile ducts: Unremarkable. No calcified stones. No ductal dilation. Pancreas: Unremarkable. Absence of pancreatic tail. No mass. No ductal dilation. Spleen: Unremarkable. No splenomegaly. Adrenals: A 1.5 cm small incidental left adrenal adenoma. No right adrenal mass. Kidneys and ureters: Unremarkable. No solid mass. No hydronephrosis. Stomach and bowel: Unremarkable stomach and small bowel. Moderately increased colonic stool volume. Distal colonic/sigmoid diverticulosis coli. Redemonstrates proximal sigmoid wall thickening with perisigmoid fat stranding/mild uncomplicated acute diverticulitis. No obstruction. PELVIS: Appendix: No findings to suggest acute appendicitis. Bladder: A distended urinary bladder. No mass. Reproductive: Unremarkable as visualized. ABDOMEN and PELVIS: Intraperitoneal space: No free air. No significant fluid collection. Bones/joints: No acute fracture. No dislocation. Mild/moderate lumbar levoscoliosis. Soft tissues: Unremarkable. Vasculature: Unremarkable. No abdominal aortic aneurysm. Lymph nodes: Unremarkable. No enlarged lymph nodes. IMPRESSION: Colonic/sigmoid sclerosis with mild sigmoid diverticulitis. No abscess. . Electronically signed by: Dinesh Barraza MD, DABR 08/11/24 22:48 PM
[2024-08-11] MEDS: metroNIDAZOLE 500 MG/100 ML BAG IV STA (23:51)
[2024-08-11] MEDS: CIPROFLOXACIN / D5W 400 MG/200 ML BAG IV STA (23:51)
--- NOTE | 2024-08-12 00:03 | History & Physical Report ---
Date of Service August 12, 2024 Assessment & Plan (1) Acute diverticulitis: (2) Uncontrolled pain: (3) Hypertension: Plan Patient is a 33-year-old male with past medical history of hypertension and GERD. He presented due to upper quadrant abdominal pain and was found to have acute diverticulitis. He is being admitted due to uncontrolled pain. #Diverticulitis/uncontrolled pain - CTAP revealed mild sigmoid diverticulitis, no abscess. Leukocytosis with white count 18.06, neutrophil predominance. Mild tachycardia (HR 110 admission), otherwise VSS and afebrile. - Pain controlled with scheduled IV Tylenol, Toradol 10 Mg IV as needed, morphine 2/4 Mg IV for breakthrough pain - 2L NSS in ED; continue fluid resuscitation with LR at 100 mL/hour - Clear liquid diet, advance as tolerated - Zofran as needed - Continue ciprofloxacin and Flagyl IV started in ED - trend CBC #HTN - stable - Holding lisinopril #GERD - transition PO PPI to IV #ADHD - hold Adderall with bowel rest - pt takes prn VTE ppx: SCDs, low risk Dispo: med surg Admission and Anticipated Discharge Date Admission Date: 08/11/24 History of Present Illness Chief Complaint: GI assessment Primary Care Provider: Kendra Lau DO Patient is a 33-year-old male with past medical history of hypertension and GERD. He presented due to upper quadrant abdominal pain and was found to have acute diverticulitis. He is being admitted due to uncontrolled pain. Patient seen at bedside with his father in law present. He stated at 230 this afternoon he developed sudden onset sharp achy pain of his lower abdomen right below his umbilicus behind his groin. This is typically where he has pain with a diverticulitis flareup. He stated the pain with this flareup is more severe than previous. He stated this flareup feels different than previous as typically it is gradual and dull and with diarrhea. He stated he has not had a bowel movement in approximately 24 hours and feels mildly constipated. He denies any blood in stool with previous bowel movement. He does endorse intermittent nausea that is currently improved. Pain is currently improved but present. He denies any dizziness, lightheadedness, chest pain, shortness of breath. He denies nicotine or daily alcohol use. He does not use oxygen at baseline. He wishes to be full code. Allergies Allergy/AdvReac Type Severity Reaction Status Date / Time amoxicillin Allergy Mild Hives Verified 06/04/24 13:01 hydrocodone [From Vicodin] AdvReac Nausea Unverified 06/04/24 13:01 Home Medications Medication Instructions Recorded Confirmed Type omeprazole 20 mg tablet,delayed 20 mg PO DAILY 01/05/18 08/12/24 History release dextroamphetamine-amphetamine ER 30 mg PO DAILY PRN adhd 06/05/24 08/12/24 History 30 mg 24hr capsule,extend release lisinopril 5 mg tablet 5 mg PO DAILY 06/05/24 08/12/24 History Past Med/Surg History Problem List (Updated 08/12/24 @ 13:03 by GILDARDO Ferrari) Diverticulitis (Acute) Uncontrolled pain (Acute) Acute diverticulitis Hypertension Stomach problems (Acute) Medical History (Updated 08/12/24 @ 13:03 by GILDARDO Ferrari) No pertinent past medical history Surgical History (Updated 06/04/24 @ 13:27 by Zeferino Velasco LPN) H/O anterior cruciate ligament surgery Family History Other No significant family history Social History Smoking Status: Never smoker Hx Alcohol Use: Yes Alcohol type: beer and hard liquor Hx Substance Use: No Preferred Language: German Financial Rep Required: No Beliefs That Will Affect Care: None Current Living Situation: Spouse current occupational status: employed current occupation: [employer] Other Information That Helps Us Care for You: No Feels Safe at Home: Yes Safety Concerns: Feels Safe At This Time Review of Systems Review of Systems: see HPI Physical Exam Physical Exam: The patient is awake, alert and oriented 3, well developed and well nourished, normocephalic and atraumatic, in no acute distress. Non-toxic appearing. HEENT- EOMI, mucous membranes dry. Hearing grossly intact. Heart-normal S1 and S2. No murmurs, rubs or gallops. Lungs-clear bilaterally, no respiratory distress, no accessory muscle use. Abdomen-normal bowel sounds and soft. No ascites noted. Tender to palpation of bilateral lower quadrants. Extremities- no clubbing, cyanosis, or edema. Rheumatologic-normal range of motion. Psychiatric-normal affect. Results & Data Results & Data Vital Signs (Past 12 Hours) Vital Signs Temp Pulse Pulse Resp BP BP Pulse Ox 08/11/24 23:52 100 H 08/11/24 23:47 36.5 C 98 H 18 119/71 94 08/11/24 22:00 99 H 16 117/77 95 08/11/24 20:05 94 H 19 140/77 98 08/11/24 19:00 98 08/11/24 18:07 36.4 C L 98 H 20 120/61 100 O2 Del Method 08/11/24 23:52 08/11/24 23:47 Room Air 08/11/24 22:00 Room Air 08/11/24 20:05 Room Air 08/11/24 19:00 Room Air 08/11/24 18:07 Room Air Laboratory Results Reviewed CBC and CMP Diagnostic Findings reviewed AP CT Medications Administered EDFlagyl 500 Mg IV, ciprofloxacin 400 Mg IV, NSS 2L bolus, Zofran 8 Mg IV, Tylenol 1G IV, morphine 4 Mg IV, Toradol 10 Mg IV ECG Additional Comments: ordered Code Status & VTE Plan VTE Prophylaxis Plan VTE Prophylaxis will be ordered: Yes Supervising Physician Co-Signing Physician Notes I personally saw and examined the patient. I independently reviewed the labs, EKG, imaging, problem list, medication list, past medical history and family history. I verified all mo points and agree with Yoanna Tena PA-C with the following exceptions and/or additions: 33 year old male presents to the ER with left lower quadrant abdominal pain. Recurrent recent history of diverticulitis. No FHx of bowel cancer. Yet to follow up with colonoscopy but has appointment with GI September 09. O/E HS increased rate, regular rhythm, no murmurs, Chest CTAB, Abdo LLQ pain without guarding without rebound tenderness A/P Acute diverticulitis - NPO, IV fluids, IV ciprofloxacin + metronidazole, follow up colonoscopy as outpatient in 6-8 weeks PG Care Time/CCT Total # of Minutes Spent Total Time Spent with Patient: Total time spent is greater than 50% in coordination of care (as documented) at patient's floor/unit and/or counseling patient: Coding Level of Care Code 42077 INT INP/OBS CARE 3/75MIN Diagnoses Acute diverticulitis K57.92 Uncontrolled pain R52 Hypertension I10
[2024-08-12 00:54] LABS: Appearance Urine Clear (Clear); Bilirubin Urine Negative (Negative); Blood Urine Negative (Negative); Color Urine Yellow; Glucose Urine UA Negative (Negative); Ketones Urine Negative (Negative); Leukocyte Esterase Urine Negative (Negative); Nitrite Urine Negative (Negative); Protein Urine Negative (Negative); Specific Gravity Urine 1.038 (1.000-1.030); Urobilinogen Urine Negative (Negative); pH Urine 5.5 (4.5-7.5)
[2024-08-12] MEDS: LACTATED RINGER'S 1,000 ML IV SCH (00:58)
[2024-08-12] MEDS ORDERED: MoRPHine SULFATE 2 MG/ML CARP IV PRN (02:54)
[2024-08-12] MEDS ORDERED: ONDANSETRON INJ 2 MG/ML 2 ML VIAL IV PRN (02:54)
[2024-08-12] MEDS: ACETAMINOPHEN 1,000 MG/100 ML VIAL IV SCH (03:12)
[2024-08-12] MEDS: MoRPHine SULFATE 4 MG/ML 1 ML CARP\\VIAL IV PRN (03:13)
[2024-08-12] MEDS: KETOROLAC TROMETHAMINE 15 MG/ML VIAL IV PRN (06:14)
[2024-08-12 06:33] LABS: Basophils # (auto) 0.05 K/uL (0.00-0.20); Basophils % (auto) 0.3 %; Eosinophils # (auto) 0.21 K/uL (0.00-0.50); Eosinophils % (auto) 1.2 %; Hematocrit (blood only) 34.6 % (42.0-52.0); Hemoglobin 11.8 g/dl (14.0-18.0); Immature Granulocytes % (auto) 0.6 %; Lymphocytes # (auto) 2.66 K/uL (1.20-3.40); Lymphocytes % (auto) 15.5 %; Mean Corpuscular Hemoglobin 28.5 pg (25.0-34.0); Mean Corpuscular Hgb Conc 34.1 g/dL (32.0-36.0); Mean Corpuscular Volume 83.6 fL (80.0-100.0); Mean Platelet Volume 9.7 fL (9.4-12.4); Monocytes # (auto) 1.46 K/uL (0.11-0.59); Monocytes % (auto) 8.5 %; Neutrophils # (auto) 12.71 K/uL (1.40-6.50); Neutrophils % (auto) 73.9 %; Platelet Count 256 K/uL (130-400); RDW Coefficient of Variation 12.7 % (11.5-14.5); RDW Standard Deviation 38.9 fL (36.4-46.3); Red Blood Count 4.14 M/uL (4.70-6.10); White Blood Count 17.19 K/ul (4.8-10.8)
[2024-08-12 06:54] LABS: BUN Creatinine Ratio 18.7 (10-20); Calcium 8.1 mg/dl (8.6-10.3); Creatinine Clr Calc Pharmacy 136.4 ml/min; Magnesium 1.4 mg/dl (1.7-2.4); Potassium 4.2 mmol/L (3.5-5.1)
[2024-08-12] MEDS: PANTOprazole 40 MG/10 ML SYR IV SCH (08:42)
[2024-08-12] MEDS: metroNIDAZOLE 500 MG/100 ML BAG IV SCH (08:42)
[2024-08-12] MEDS: MAGNESIUM SULFATE / D5W 1 GM/100 ML BAG IV SCH (09:30)
[2024-08-12] MEDS ORDERED: ACETAMINOPHEN 500 MG TAB PO PRN (10:31)
[2024-08-12] MEDS: CIPROFLOXACIN / D5W 400 MG/200 ML BAG IV SCH (11:39)
[2024-08-12] MEDS: SENNA 8.6 MG TAB PO SCH (15:55)
--- NOTE | 2024-08-12 16:07 | Hospitalist Progress Note ---
Date of Service August 12, 2024 Assessment & Plan (1) Acute diverticulitis: (2) Uncontrolled pain: (3) Hypertension: Plan Patient is a 33-year-old male with past medical history of hypertension and GERD. He presented due to upper quadrant abdominal pain and was found to have acute diverticulitis on CT A/P. He is being admitted due to uncontrolled pain. #Diverticulitis/uncontrolled pain - CTAP revealed mild sigmoid diverticulitis, no abscess. Not septic on admission. Pain control: PO tylenol prn, po oxycodone prn Toradol 10 Mg IV as needed, morphine 2/4 Mg IV for breakthrough pain 2L NSS in ED; continue fluid resuscitation with LR at 150 mL/hour x 3 bags Continue cipro and Flagyl IV Diet advanced to low fiver Recommend outpatient GI follow up - scheduled to see [facility] later this summer Encourage ambulation. PO senna added #HTN - stable - Holding lisinopril #GERD - transition PO PPI to IV #ADHD - hold Adderall with bowel rest - pt takes prn VTE ppx: SCDs, low risk, encourage ambulation Dispo: continued inpatient stay for pain control Admission and Anticipated Discharge Date Admission Date: August 12, 2024 Subjective patient seen earlier this morning - has had issues with diverticulitis in the past, says the pain is worse this time. not having bowel movements. tolerated clear liquids without issue this morning --- revisited this afternoon - still having pain. no bowel movement yet, has been walking the halls questioning if he should have further eval - discussed outpatient colonscopy would be recommended ' did get nauseous after 25% of his lunch but tolerating smoothie at present, would like to try low fiber again for dinner Review of Systems Review of Systems: All systems reviewed & are unremarkable except as noted in Subjective Physical Exam Physical Exam: The patient is awake, alert and oriented 3, well developed and well nourished, normocephalic and atraumatic, in no acute distress. Non-toxic appearing. HEENT- EOMI, mucous membranes moist Heart-normal S1 and S2. No murmurs, rubs or gallops. Lungs-clear bilaterally, no respiratory distress, no accessory muscle use. Abdomen-normal bowel sounds and soft. No ascites noted. Tender to palpation of bilateral lower quadrants. Extremities- no clubbing, cyanosis, or edema. moves all extremities Psychiatric-normal affect. Results & Data Results & Data Vital Signs (Past 12 Hours) Vital Signs Temp Pulse Resp BP Pulse Ox O2 Del Method 08/12/24 13:35 97.7 F 86 16 125/85 97 Room Air 08/12/24 11:42 98.8 F 92 H 16 104/72 96 Room Air 08/12/24 07:30 98.6 F 72 16 130/90 94 Room Air Laboratory Results cbc and chemistry reviewd ua rvveiwed PG Care Time/CCT Total # of Minutes Spent Total Time Spent with Patient: Total time spent is greater than 50% in coordination of care (as documented) at patient's floor/unit and/or counseling patient: Coding Level of Care Code None Diagnoses Acute diverticulitis K57.92 Uncontrolled pain R52 Hypertension I10
[2024-08-13] MEDS: oxyCODONE HCL IR 5 MG TAB (IMMEDIATE RELEASE) PO PRN (00:32)
--- NOTE | 2024-08-13 14:14 | Hospitalist Progress Note ---
Date of Service August 13, 2024 Assessment & Plan (1) Acute diverticulitis: (2) Uncontrolled pain: (3) Hypertension: Plan Patient is a 33-year-old male with past medical history of hypertension and GERD. He presented due to upper quadrant abdominal pain and was found to have acute diverticulitis on CT A/P. He is being admitted due to uncontrolled pain. #Diverticulitis/uncontrolled pain - CTAP revealed mild sigmoid diverticulitis, no abscess. Not septic on admission. Pain control: Toradol 10 Mg IV as needed, morphine 2/4 Mg IV for breakthrough pain Has received 5L IVFs Continue cipro and Flagyl IV Diet advanced to low fiber - may have to deescalate if not improving. Recommend outpatient GI follow up - scheduled to see [facility] later this summer Encourage ambulation. Will plan for repeat CT scan today as patient is still painful. Defer addition al stool softeners until confirming no obstruction. CT scan showing perforation. Patient informed. Made NPO, and general surgery consulted. Will use IV pain medication only. Plan to restart IVFs later this evening as had already received a large volume. did have BM today. 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 AM CBC and BMP #HTN - stable - Holding lisinopril #GERD - transition PO PPI to IV #ADHD - hold Adderall with bowel rest - pt takes prn VTE ppx: SCDs, low risk, encourage ambulation Dispo: continued inpatient stay Admission and Anticipated Discharge Date Admission Date: August 12, 2024 Subjective patient with continued pain. Still feels worse than his prior episodes of diverticulitis. Does feel like it is maybe slightly better from yesterday afternoon. Was able to eat dinner last night with minimal pain. Has not attempted to eat breakfast at the time of my encounter. Is passing minimal gas but no bowel movement yet. Review of Systems Review of Systems: All systems reviewed & are unremarkable except as noted in Subjective Physical Exam Physical Exam: The patient is awake, alert and oriented 3, well developed and well nourished, normocephalic and atraumatic, in no acute distress. Non-toxic appearing. HEENT- EOMI, mucous membranes moist Heart-normal S1 and S2. No murmurs, rubs or gallops. Lungs-clear bilaterally, no respiratory distress, no accessory muscle use. Abdomen- Hypoactive bowel sounds, slightly more distended compared to yesterday. Tender to palpation of bilateral lower quadrants. Extremities- no clubbing, cyanosis, or edema. moves all extremities Psychiatric-normal affect. Results & Data Results & Data Vital Signs (Past 12 Hours) Vital Signs Temp Pulse Resp BP Pulse Ox O2 Del Method 08/13/24 07:31 99.0 F 115 H 18 143/87 H 95 Room Air Diagnostic Findings CT scan reviewed PG Care Time/CCT Total # of Minutes Spent Total Time Spent with Patient: Total time spent is greater than 50% in coordination of care (as documented) at patient's floor/unit and/or counseling patient: Coding Level of Care Code 44495 SUB INP/OBS CARE 3/50MIN Diagnoses Acute diverticulitis K57.92 Uncontrolled pain R52 Hypertension I10
[2024-08-13] MEDS: OPTIRAY 320 100ml IV ONE (15:53)
--- NOTE | 2024-08-13 16:14 | CT Scan Report ---
Clinical History: Pain Technique: Axial computed tomography images were obtained of the abdomen and pelvis after the administration of intravenous and oral contrast. Findings: The liver is overall of normal size, attenuation, and contour with no sign of cirrhosis or significant fatty infiltration. No liver mass lesion is seen. The portal vein is patent. The gallbladder appears unremarkable. No bile duct dilatation is noted. The spleen is of normal size. No focal splenic lesion is evident. The pancreas appears normal with no sign of acute or chronic pancreatitis and no mass lesion noted. The pancreatic duct is of normal caliber. The adrenal glands appear unremarkable. No definite renal or proximal ureteral calculi are seen on this contrast-enhanced study. There is no hydronephrosis or perinephric stranding. No renal mass lesion is identified. The aorta is of normal caliber. No abdominal adenopathy is seen. The stomach appears normal. There is no sign of small bowel obstruction. There is acute diverticulitis of the proximal sigmoid colon. There is a small amount of free intraperitoneal air and there is a small amount of ascites. There is a small collection of fluid and air in the sigmoid colon mesentery without a clear discrete abscess at this time. No distal ureteral or bladder calculi are seen. There is mild prominence of the wall of the urinary bladder with mild adjacent soft tissue stranding. No definite focal bladder mass lesion is evident. The iliac arteries are of normal caliber. No pelvic adenopathy is noted. There is mild bilateral lower lobe atelectasis. No fracture is identified. No focal osseous lesion is seen Impression: 1. Perforated acute diverticulitis, with a small amount of free intraperitoneal air 2. Small amount of ascites 3. Apparent mild bladder wall thickening with mild adjacent soft tissue stranding. This could be due to infectious cystitis ACT 112: Positive. There are findings on this exam that require communication between the performing entity and the patient following Patient Test Result Information Act ([place] ACT 112) guidelines. Electronically signed by John Trinidad 08-13-2024 4:14 PM
--- NOTE | 2024-08-13 17:24 | Surgery Consultation ---
Date of Consultation August 13, 2024 Assessment & Plan (1) Diverticulitis of colon with perforation: 33-year-old male with history of recurrent diverticulitis treated with oral antibiotics now presenting to the hospital with severe uncontrolled pain and initial CT scan on 08/11/2024 showed sigmoid diverticulitis with no evidence of perforation or abscess. Repeat CT scan of abdomen and pelvis today showing sigmoid diverticulitis with perforation and small amount of pneumoperitoneum with fluid in the sigmoid mesentery. Leukocytosis slightly improved to 15,000 from 17,000. He is tachycardic. However afebrile. Hemodynamically stable. Abdomen with diffuse tenderness more so in the left lower quadrant on mild palpation with voluntary guarding however abdomen is not rigid and there is no peritonitis. Recommend n.p.o. for bowel rest may have ice chips, IV antibiotics, IV fluids, pain management and close monitoring. Discussed with patient and family at bedside that if anything were to change with his pain he needs to let the nursing staff know. He may require surgical exploration we will keep a close eye on him for now. Discussed with Dr. Vicente who agrees with above History of Present Illness Reason for Consultation: Diverticulitis with microperforation Requesting Physician: Bess Mondragon Attending Physician: Daniel Cherry MD History of Present Illness Jackson is a 33-year-old male with a history of hypertension and GERD who presented to the emergency department on Monday with complaint of increasing abdominal pain with associated nausea. He states that he has had multiple episodes of diverticulitis in the past with 3 episodes since May of this year. This is the first time he has been admitted to the hospital for diverticulitis management. He states that he had sudden severe pain in the evening of admission and then pain has been steady since. Pain is throughout the abdomen but more in the left lower quadrant. He had a normal bowel movement prior to this repeat CT scan today. No blood in the stools. No persistent nausea or vomiting. Denies of any fevers or chills. No history of abdominal surgeries. Allergies Allergy/AdvReac Type Severity Reaction Status Date / Time amoxicillin Allergy Mild Hives Verified 06/04/24 13:01 hydrocodone [From Vicodin] AdvReac Nausea Unverified 06/04/24 13:01 Home Medications Medication Instructions Recorded Confirmed Type omeprazole 20 mg tablet,delayed 20 mg PO DAILY 01/05/18 08/12/24 History release dextroamphetamine-amphetamine ER 30 mg PO DAILY PRN adhd 06/05/24 08/12/24 History 30 mg 24hr capsule,extend release lisinopril 5 mg tablet 5 mg PO DAILY 06/05/24 08/12/24 History Patient History Medical History (Updated 08/13/24 @ 18:08 by Caroline Gonzalez PA-C) No pertinent past medical history Surgical History (Updated 06/04/24 @ 13:27 by Zeferino Velasco LPN) H/O anterior cruciate ligament surgery Family History Other No significant family history Social History Smoking Status: Never smoker Hx Alcohol Use: Yes Alcohol type: beer and hard liquor Hx Substance Use: No Preferred Language: Portuguese Communication Ability: Effective 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 Beliefs That Will Affect Care: None Current Living Situation: Spouse current occupational status: employed current occupation: [employer] Other Information That Helps Us Care for You: No Feels Safe at Home: Yes Safety Concerns: Feels Safe At This Time Assistive Devices: None Review of Systems Review of Systems: All systems reviewed & are unremarkable except as noted in HPI & below Physical Exam Constitutional: cooperative; no acute distress, not ill appearing, + uncomfortable and not diaphoretic Respiratory: normal respiratory effort, lungs clear to auscultation Cardiovascular: Rate/Rhythm: regular rhythm and + tachycardic Heart Sounds: normal S1 and normal S2 Gastrointestinal (Abdomen): Inspection/Auscultation: abdomen normal to inspection; abdomen not distended Percussion/Palpation: + abdomen tender ( Generalized tenderness more tender in the left lower quadrant), + guarding ( voluntary guarding of the left lower quadrant on palpation) and abdomen soft; abdomen not rigid and abdomen not firm Skin: no rashes, warm and dry Psychiatric: Orientation: alert and oriented x 3 Results & Data Vital Signs (Past 12 Hours) Vital Signs Temp Pulse Resp BP Pulse Ox O2 Del Method 08/13/24 15:16 37 C 110 H 18 138/87 98 Room Air 08/13/24 07:31 37.2 C 115 H 18 143/87 H 95 Room Air Laboratory Results 08/13/24 Range/Units 17:32 WBC 15.57 H (4.8-10.8) K/ul RBC 3.88 L (4.70-6.10) M/uL Hgb 11.1 L (14.0-18.0) g/dl Hct 32.9 L (42.0-52.0) % MCV 84.8 (80.0-100.0) fL MCH 28.6 (25.0-34.0) pg MCHC 33.7 (32.0-36.0) g/dL RDW Std Deviation 39.8 (36.4-46.3) fL RDW Coeff of Renetta 13.0 (11.5-14.5) % Plt Count 258 (130-400) K/uL MPV 9.7 (9.4-12.4) fL Immature Gran % (Auto) 1.1 % Neut % (Auto) 75.7 % Lymph % (Auto) 11.0 % [place] % (Auto) 10.3 % Eos % (Auto) 1.5 % Baso % (Auto) 0.4 % Neut # (Auto) 11.77 H (1.40-6.50) K/uL Lymph # (Auto) 1.72 (1.20-3.40) K/uL [place] # (Auto) 1.61 H (0.11-0.59) K/uL Eos # (Auto) 0.24 (0.00-0.50) K/uL Baso # (Auto) 0.06 (0.00-0.20) K/uL Immature Gran # (Auto) 0.17 (0.01-0.20) K/uL Diagnostic Findings ADDENDUM CRITICAL FIND: Libby Cottrell, [id number], Call Center Staff, called to inform them of a critical finding in the report, and if they needed to speak with the interpreting radiologist at 4:44 PM. Rylee the RN did not want to speak with the reading radiologist. Call was completed at 4:44PM on 08/13/24 Electronically signed by John Trinidad 08-13-2024 4:48 PM ADDENDUM END Clinical History: Pain Technique: Axial computed tomography images were obtained of the abdomen and pelvis after the administration of intravenous and oral contrast. Findings: The liver is overall of normal size, attenuation, and contour with no sign of cirrhosis or significant fatty infiltration. No liver mass lesion is seen. The portal vein is patent. The gallbladder appears unremarkable. No bile duct dilatation is noted. The spleen is of normal size. No focal splenic lesion is evident. The pancreas appears normal with no sign of acute or chronic pancreatitis and no mass lesion noted. The pancreatic duct is of normal caliber. The adrenal glands appear unremarkable. No definite renal or proximal ureteral calculi are seen on this contrast-enhanced study. There is no hydronephrosis or perinephric stranding. No renal mass lesion is identified. The aorta is of normal caliber. No abdominal adenopathy is seen. The stomach appears normal. There is no sign of small bowel obstruction. There is acute diverticulitis of the proximal sigmoid colon. There is a small amount of free intraperitoneal air and there is a small amount of ascites. There is a small collection of fluid and air in the sigmoid colon mesentery without a clear discrete abscess at this time. No distal ureteral or bladder calculi are seen. There is mild prominence of the wall of the urinary bladder with mild adjacent soft tissue stranding. No definite focal bladder mass lesion is evident. The iliac arteries are of normal caliber. No pelvic adenopathy is noted. There is mild bilateral lower lobe atelectasis. No fracture is identified. No focal osseous lesion is seen Impression: 1. Perforated acute diverticulitis, with a small amount of free intraperitoneal air 2. Small amount of ascites 3. Apparent mild bladder wall thickening with mild adjacent soft tissue stranding. This could be due to infectious cystitis ACT 112: Positive. There are findings on this exam that require communication between the performing entity and the patient following Patient Test Result Information Act ([place] ACT 112) guidelines. Exam(s): CT ABDOMEN + PELVIS With Contrast IV Amt: optiray 320 90ml EXAM: CT Abdomen and Pelvis With Intravenous Contrast CLINICAL HISTORY: Reason for exam: abd pain, hx diverticulitis. TECHNIQUE: Axial computed tomography images of the abdomen and pelvis with intravenous contrast. CTDI is 27.81 mGy and DLP is 1475.49 mGy-cm. Automated exposure control was utilized for the study. A dose lowering technique was utilized adhering to the principles of ALARA. CONTRAST: Patient received optiray 320 90ml of IV contrast COMPARISON: CT abdomen/pelvis: 06/05/2024 FINDINGS: Image quality is somewhat degraded by motion artifact. Lung bases: Posteriorly subpleural mild atelectatic changes.. No mass. No consolidation. ABDOMEN: Liver: Mild steatosis. No mass. Gallbladder and bile ducts: Unremarkable. No calcified stones. No ductal dilation. Pancreas: Unremarkable. Absence of pancreatic tail. No mass. No ductal dilation. Spleen: Unremarkable. No splenomegaly. Adrenals: A 1.5 cm small incidental left adrenal adenoma. No right adrenal mass. Kidneys and ureters: Unremarkable. No solid mass. No hydronephrosis. Stomach and bowel: Unremarkable stomach and small bowel. Moderately increased colonic stool volume. Distal colonic/sigmoid diverticulosis coli. Redemonstrates proximal sigmoid wall thickening with perisigmoid fat stranding/mild uncomplicated acute diverticulitis. No obstruction. PELVIS: Appendix: No findings to suggest acute appendicitis. Bladder: A distended urinary bladder. No mass. Reproductive: Unremarkable as visualized. ABDOMEN and PELVIS: Intraperitoneal space: No free air. No significant fluid collection. Bones/joints: No acute fracture. No dislocation. Mild/moderate lumbar levoscoliosis. Soft tissues: Unremarkable. Vasculature: Unremarkable. No abdominal aortic aneurysm. Lymph nodes: Unremarkable. No enlarged lymph nodes. IMPRESSION: Colonic/sigmoid sclerosis with mild sigmoid diverticulitis. No abscess. . I personally reviewed both CT scans and concur with above findings there is some pneumoperitoneum on the second repeat CT scan from today. Foci of pneumoperitoneum Above the liver and left upper quadrant and near the sigmoid colon no large amount of pneumoperitoneum.
[2024-08-13 17:46] LABS: Basophils # (auto) 0.06 K/uL (0.00-0.20); Basophils % (auto) 0.4 %; Eosinophils # (auto) 0.24 K/uL (0.00-0.50); Eosinophils % (auto) 1.5 %; Hematocrit (blood only) 32.9 % (42.0-52.0); Hemoglobin 11.1 g/dl (14.0-18.0); Immature Granulocytes # (auto) 0.17 K/uL (0.01-0.20); Immature Granulocytes % (auto) 1.1 %; Lymphocytes # (auto) 1.72 K/uL (1.20-3.40); Mean Corpuscular Hemoglobin 28.6 pg (25.0-34.0); Mean Corpuscular Hgb Conc 33.7 g/dL (32.0-36.0); Mean Corpuscular Volume 84.8 fL (80.0-100.0); Mean Platelet Volume 9.7 fL (9.4-12.4); Monocytes # (auto) 1.61 K/uL (0.11-0.59); Monocytes % (auto) 10.3 %; Neutrophils # (auto) 11.77 K/uL (1.40-6.50); Neutrophils % (auto) 75.7 %; Platelet Count 258 K/uL (130-400); RDW Standard Deviation 39.8 fL (36.4-46.3); Red Blood Count 3.88 M/uL (4.70-6.10); White Blood Count 15.57 K/ul (4.8-10.8)
[2024-08-13] MEDS: LACTATED RINGER'S 1,000 ML IV SCH (20:45)
[2024-08-14 06:09] LABS: Basophils # (auto) 0.05 K/uL (0.00-0.20); Basophils % (auto) 0.4 %; Eosinophils # (auto) 0.35 K/uL (0.00-0.50); Eosinophils % (auto) 2.9 %; Hematocrit (blood only) 31.7 % (42.0-52.0); Hemoglobin 10.8 g/dl (14.0-18.0); Immature Granulocytes # (auto) 0.12 K/uL (0.01-0.20); Lymphocytes # (auto) 1.96 K/uL (1.20-3.40); Lymphocytes % (auto) 16.1 %; Mean Corpuscular Hemoglobin 28.6 pg (25.0-34.0); Mean Corpuscular Hgb Conc 34.1 g/dL (32.0-36.0); Mean Corpuscular Volume 83.9 fL (80.0-100.0); Mean Platelet Volume 9.4 fL (9.4-12.4); Monocytes # (auto) 1.19 K/uL (0.11-0.59); Monocytes % (auto) 9.8 %; Neutrophils # (auto) 8.53 K/uL (1.40-6.50); Neutrophils % (auto) 69.8 %; Platelet Count 218 K/uL (130-400); RDW Coefficient of Variation 12.9 % (11.5-14.5); RDW Standard Deviation 39.6 fL (36.4-46.3); Red Blood Count 3.78 M/uL (4.70-6.10)
[2024-08-14 06:26] LABS: BUN Creatinine Ratio 8.8 (10-20); Calcium 8.3 mg/dl (8.6-10.3); Creatinine Clr Calc Pharmacy 136.4 ml/min; Potassium 4.1 mmol/L (3.5-5.1)
--- NOTE | 2024-08-14 10:34 | Surgery Progress Note ---
Date of Service August 14, 2024 Assessment & Plan (1) Diverticulitis of colon with perforation: Plan: responding to abx likely perforation occurred days ago NPO possibly diet tomorrow Admission and Anticipated Discharge Date Admission Date: August 12, 2024 Subjective feels better some pain Review of Systems Constitutional: + anorexia; no fever and no chills Respiratory: no cough and no dyspnea Cardiovascular: no chest pain Gastrointestinal: + abdominal pain; no nausea, no vomiting and no change in bowel habits Musculoskeletal: no back pain Neurologic: no localized weakness and no generalized weakness Psychiatric: no behavioral changes Hematologic / Lymphatic: no easy bleeding and no easy bruising Physical Exam Constitutional: WD/WN, vitals as above Neck: trachea midline Respiratory: normal respiratory effort, lungs clear to auscultation Cardiovascular: RRR, no murmur, no edema Gastrointestinal (Abdomen): Inspection/Auscultation: abdomen normal to inspection and normal bowel sounds; abdomen not distended Percussion/Palpation: + abdomen tender and abdomen soft; no guarding and abdomen not rigid Musculoskeletal: Head/Neck/Chest: normocephalic and head atraumatic Skin: no rashes, warm and dry Results & Data Vital Signs (Past 12 Hours) Vital Signs Temp Pulse Resp BP Pulse Ox O2 Del Method 08/14/24 07:41 37.4 C 94 H 14 137/88 94 Room Air
--- NOTE | 2024-08-14 12:15 | Hospitalist Progress Note ---
Date of Service August 14, 2024 Assessment & Plan (1) Acute diverticulitis: (2) Uncontrolled pain: (3) Hypertension: Plan Patient is a 33-year-old male with past medical history of hypertension, diverticulitis and GERD. He presented due to upper quadrant abdominal pain and was found to have acute diverticulitis on CT A/P. pain worsening especially relation to prior episodes, repeat CT scan was performed showing perforation. General surgery is consulted #Diverticulitis/uncontrolled pain Pain control: Toradol 10 Mg IV as needed, morphine 2/4 Mg IV for breakthrough pain Continue cipro and Flagyl IV with worsening pain, repeat CT scan showed perforation, general surgery was consulted. No emergent surgical intervention but monitor closely for worsening pain. Remains n.p.o. for today with sips and chips Leukocytosis is improving Will give additional 1 L IV fluids today as patient is n.p.o. but has received a large volume of IV fluids this admission Recommend outpatient GI follow up - scheduled to see [facility] later this summer Encourage ambulation. a.m. CBC #HTN - stable - Holding lisinopril #GERD - transition PO PPI to IV #ADHD - hold Adderall with bowel rest - pt takes prn VTE ppx: SCDs, low risk, encourage ambulation Dispo: continued inpatient stay Admission and Anticipated Discharge Date Admission Date: August 12, 2024 Supervising Physician Co-Signing Physician Notes Attending Attestation - Chart reviewed, care plan d/w LEATHA Mondragon. I agree w/ the mo components of her documentation. WBC improving. Creatinine has improved. Cont IV cipro/flagyl for complicated sigmoid diverticulitis with perforation (repeat CT a/p on 08/13 showed perforation/free air). Appreciate gen surg assistance. Diet management - defer to gen surg. Roldan Moncada MD Subjective patient seen lying in bed, pain is starting to improve. States that the worst pain, is when he is passing gas but this is infrequent. States that he is urinating without issue, does feel like he is urinating frequency with the amount of fluids we have given him. Denies fevers or chills overnight. Review of Systems Review of Systems: All systems reviewed & are unremarkable except as noted in Subjective Physical Exam Physical Exam: The patient is awake, alert and oriented 3, well developed and well nourished, normocephalic and atraumatic, in no acute distress. Non-toxic appearing. HEENT- EOMI, mucous membranes moist Heart-normal S1 and S2. No murmurs, rubs or gallops. Lungs-clear bilaterally, no respiratory distress, no accessory muscle use. Abdomen- normal bowel sounds, Mild tenderness, abdomen is much softer compared to prior days Extremities- no clubbing, cyanosis, or edema. moves all extremities Psychiatric-normal affect. Results & Data Results & Data Vital Signs (Past 12 Hours) Vital Signs Temp Pulse Resp BP Pulse Ox O2 Del Method 08/14/24 07:41 99.3 F 94 H 14 137/88 94 Room Air Laboratory Results CBC and chemistry reviewed PG Care Time/CCT Total # of Minutes Spent Total Time Spent with Patient: Total time spent is greater than 50% in coordination of care (as documented) at patient's floor/unit and/or counseling patient: Coding Level of Care Code 12730 SUB INP/OBS CARE 2/35MIN Diagnoses Acute diverticulitis K57.92 Uncontrolled pain R52 Hypertension I10
[2024-08-14] MEDS: LACTATED RINGER'S 1,000 ML IV SCH (16:17)
[2024-08-15 06:37] LABS: Basophils # (auto) 0.04 K/uL (0.00-0.20); Basophils % (auto) 0.4 %; Eosinophils # (auto) 0.43 K/uL (0.00-0.50); Eosinophils % (auto) 4.4 %; Hematocrit (blood only) 32.5 % (42.0-52.0); Hemoglobin 11.1 g/dl (14.0-18.0); Immature Granulocytes # (auto) 0.07 K/uL (0.01-0.20); Immature Granulocytes % (auto) 0.7 %; Lymphocytes # (auto) 1.83 K/uL (1.20-3.40); Lymphocytes % (auto) 18.9 %; Mean Corpuscular Hemoglobin 28.2 pg (25.0-34.0); Mean Corpuscular Hgb Conc 34.2 g/dL (32.0-36.0); Mean Corpuscular Volume 82.7 fL (80.0-100.0); Mean Platelet Volume 9.4 fL (9.4-12.4); Monocytes # (auto) 0.89 K/uL (0.11-0.59); Monocytes % (auto) 9.2 %; Neutrophils # (auto) 6.44 K/uL (1.40-6.50); Neutrophils % (auto) 66.4 %; Platelet Count 277 K/uL (130-400); RDW Coefficient of Variation 12.3 % (11.5-14.5); RDW Standard Deviation 37.3 fL (36.4-46.3); Red Blood Count 3.93 M/uL (4.70-6.10)
--- NOTE | 2024-08-15 09:44 | Surgery Progress Note ---
Date of Service August 15, 2024 Assessment & Plan (1) Diverticulitis of colon with perforation: Plan: avss Leukocytosis resolved responding to abx likely perforation occurred days ago Plan: Clear liquids continue IV abx ambulate Colace BID, avoid laxatives continue medical management will need colonoscopy in 6-8 weeks can consider surgical follow-up given recurrent episodes of diverticulitis in last 3 months although could have been smoldering diverticulitis not completed treated with Oral antibiotics that led to this admission. Discussed outpatient surgery follow-up vs colorectal follow-up if interested in discussion of any surgical resection. Discussed with Dr. Vicente who agrees with above. Admission and Anticipated Discharge Date Admission Date: August 12, 2024 Subjective feeling better pain more in lower abdomen no n,v no fevers or chills ambulating and urinating passing gas no bowel movement since Monday very hungry Review of Systems Review of Systems: All systems reviewed & are unremarkable except as noted in HPI & below Physical Exam Constitutional: WD/WN, vitals as above cooperative and comfortable; no acute distress and not ill appearing Respiratory: normal respiratory effort; no respiratory distress Gastrointestinal (Abdomen): Inspection/Auscultation: abdomen normal to inspection; abdomen not distended Percussion/Palpation: + abdomen tender (LLQ on deep palpation) and abdomen soft; no guarding, abdomen not rigid and abdomen not firm Skin: no rashes, warm and dry Psychiatric: A+Ox3, euthymic affect Results & Data Vital Signs (Past 12 Hours) Vital Signs Temp Pulse Resp BP Pulse Ox O2 Del Method 08/15/24 07:26 36.8 C 94 H 16 128/85 96 Room Air Laboratory Results 08/15/24 Range/Units 06:11 WBC 9.70 (4.8-10.8) K/ul RBC 3.93 L (4.70-6.10) M/uL Hgb 11.1 L (14.0-18.0) g/dl Hct 32.5 L (42.0-52.0) % MCV 82.7 (80.0-100.0) fL MCH 28.2 (25.0-34.0) pg MCHC 34.2 (32.0-36.0) g/dL RDW Std Deviation 37.3 (36.4-46.3) fL RDW Coeff of Renteta 12.3 (11.5-14.5) % Plt Count 277 (130-400) K/uL MPV 9.4 (9.4-12.4) fL Immature Gran % (Auto) 0.7 % Neut % (Auto) 66.4 % Lymph % (Auto) 18.9 % [place] % (Auto) 9.2 % Eos % (Auto) 4.4 % Baso % (Auto) 0.4 % Neut # (Auto) 6.44 (1.40-6.50) K/uL Lymph # (Auto) 1.83 (1.20-3.40) K/uL [place] # (Auto) 0.89 H (0.11-0.59) K/uL Eos # (Auto) 0.43 (0.00-0.50) K/uL Baso # (Auto) 0.04 (0.00-0.20) K/uL Immature Gran # (Auto) 0.07 (0.01-0.20) K/uL
[2024-08-15] MEDS: DOCUSATE SODIUM 100 MG CAP PO SCH (09:51)
--- NOTE | 2024-08-15 11:32 | Hospitalist Progress Note ---
Date of Service August 15, 2024 Assessment & Plan (1) Acute diverticulitis: (2) Uncontrolled pain: (3) Hypertension: (4) Diverticulitis of colon with perforation: Plan Patient is a 33-year-old male with past medical history of hypertension, diverticulitis and GERD. He presented due to upper quadrant abdominal pain and was found to have acute diverticulitis on CT A/P. pain worsening especially relation to prior episodes, repeat CT scan was performed showing perforation. General surgery is consulted #Diverticulitis/uncontrolled pain Pain control: Toradol 10 Mg IV as needed, morphine 2/4 Mg IV for breakthrough pain. oxycodone added now that pt is allowed a diet Continue cipro and Flagyl IV With worsening pain, repeat CT scan showed perforation, general surgery was consulted. No emergent surgical intervention but monitor closely for worsening pain. advanced to clear liquids for today Leukocytosis has resolved. Recieved ample IV fluids. Recommend outpatient GI follow up - scheduled to see [facility] later this summer. Gen surg rec colonscopy in 6-8 weeks. a.m. CBC and BMP with toradol use #HTN - stable - Holding lisinopril #GERD - transition PO PPI to IV #ADHD - hold Adderall with bowel rest - pt takes prn VTE ppx: SCDs, low risk, encourage ambulation Dispo: continued inpatient stay for diet advancement Admission and Anticipated Discharge Date Admission Date: August 12, 2024 Supervising Physician Co-Signing Physician Notes Attending Attestation - Chart reviewed, care plan d/w LEATHA Mondragon. I agree w/ the mo components of her documentation with the following addition -- * acute sigmoid diverticulitis - COMPLICATED - with perforation Cont IV cipro/flagyl. Appreciate gen surg assistance. Gen surg started clears. Labs acceptable today & stable (WBCs now normal). Roldan Moncada MD Subjective patient seen lying in bed reports feeling much better and being hungry - has been advanced to clears by surgery pain improving with passing gas Review of Systems Review of Systems: All systems reviewed & are unremarkable except as noted in Subjective Physical Exam Physical Exam: The patient is awake, alert and oriented 3, well developed and well nourished, normocephalic and atraumatic, in no acute distress. Non-toxic appearing. HEENT- EOMI, mucous membranes moist Heart-normal S1 and S2. No murmurs, rubs or gallops. Lungs-clear bilaterally, no respiratory distress, no accessory muscle use. Abdomen- normal bowel sounds, soft and nontender. ' Extremities- no clubbing, cyanosis, or edema. moves all extremities Psychiatric-normal affect. Results & Data Results & Data Vital Signs (Past 12 Hours) Vital Signs Temp Pulse Resp BP Pulse Ox O2 Del Method 08/15/24 07:26 98.2 F 94 H 16 128/85 96 Room Air Laboratory Results cbc reviewed PG Care Time/CCT Total # of Minutes Spent Total Time Spent with Patient: Total time spent is greater than 50% in coordination of care (as documented) at patient's floor/unit and/or counseling patient: Coding Level of Care Code 14537 SUB INP/OBS CARE 2/35MIN Diagnoses Acute diverticulitis K57.92 Uncontrolled pain R52 Hypertension I10 Diverticulitis of colon with perforation K57.20
[2024-08-16] MEDS: MELATONIN 3 MG TAB PO PRN (03:43)
[2024-08-16 06:07] LABS: Hematocrit (blood only) 34.3 % (42.0-52.0); Hemoglobin 11.7 g/dl (14.0-18.0); Mean Corpuscular Hemoglobin 28.1 pg (25.0-34.0); Mean Corpuscular Hgb Conc 34.1 g/dL (32.0-36.0); Mean Corpuscular Volume 82.5 fL (80.0-100.0); Mean Platelet Volume 9.2 fL (9.4-12.4); Platelet Count 313 K/uL (130-400); RDW Coefficient of Variation 12.5 % (11.5-14.5); RDW Standard Deviation 37.5 fL (36.4-46.3); Red Blood Count 4.16 M/uL (4.70-6.10); White Blood Count 9.04 K/ul (4.8-10.8)
[2024-08-16 06:23] LABS: BUN Creatinine Ratio 8.8 (10-20); Calcium 8.4 mg/dl (8.6-10.3); Creatinine Clr Calc Pharmacy 136.4 ml/min; Potassium 3.8 mmol/L (3.5-5.1)
--- NOTE | 2024-08-16 09:12 | Hospitalist Progress Note ---
Date of Service August 16, 2024 Assessment & Plan (1) Diverticulitis of colon with perforation: (2) Uncontrolled pain: (3) Hypertension: Plan Patient is a 33-year-old male with past medical history of hypertension, diverticulitis and GERD. He presented due to upper quadrant abdominal pain and was found to have acute diverticulitis on CT A/P. Due to worsening pain (especially in relation to prior episodes), a repeat CT scan was performed which showed perforation. General surgery was consulted at that time. No emergent surgical intervention required but the surgical team continues to follow along with care. Leukocytosis resolved 08/15, remains afebrile. #Diverticulitis/uncontrolled pain Continue IV Cipro and Flagyl Continue Colace BID, avoid laxatives during acute episode On full liquid diet for now, well-tolerating. Can advance to low fiber diet for breakfast 08/17 Pain regimen includes Toradol 10 Mg IV as needed, morphine 2/4 Mg IV for breakthrough pain. Oxycodone added now that pt is allowed a diet. Patient has not required narcotics in >24 hours Recommend outpatient GI follow up - scheduled to see [facility] in September. Gen surg rec colonoscopy in 6-8 weeks #HTN Holding lisinopril and BP remains stable #GERD Continue IV Protonix 40 mg daily #ADHD Hold Adderall with bowel rest - pt takes prn VTE ppx: SCDs, low risk, encourage ambulation Dispo: continued inpatient stay for diet advancement Updated at bedside Admission and Anticipated Discharge Date Admission Date: August 12, 2024 Supervising Physician Co-Signing Physician Notes Attending Attestation - Chart reviewed, care plan d/w LEATHA Black. I agree w/ the mo components of her documentation. Cont IV cipro/flagyl. Appreciate gen surg assistance. Gen surg advanced diet to full liquids today. Tolerating diet thus far. Roldan Moncada MD Subjective Patient seen and evaluated at bedside with his present. He reports feeling much better. He is passing gas, tolerating his full liquid diet without abdominal pain or nausea. We discussed continuing full liquids for tonight and advancing to low fiber breakfast tomorrow. All questions addressed/answered. He denies additional complaints or concerns at this time. Physical Exam Physical Exam: General: No acute distress, nondiaphoretic, well-developed, well-nourished. Cardiac: Regular rate and rhythm without murmurs gallops or rubs. Pulm: Clear to auscultation bilaterally without wheezes, rales or rhonchi. Normal respiratory effort. 98% on room air. Abdominal: Soft, nondistended. Mild tenderness to deep palpation of LLQ. Bowel sounds present x 4 quadrants. No guarding or rebound tenderness. Neuro: A&O x3. No focal neurological deficits. Results & Data Results & Data Vital Signs (Past 12 Hours) Vital Signs Temp Pulse Resp BP Pulse Ox O2 Del Method 08/16/24 07:22 98.4 F 80 14 124/80 96 Room Air Laboratory Results Reviewed CBC Reviewed BMP PG Care Time/CCT Total # of Minutes Spent Total Time Spent with Patient: Total time spent is greater than 50% in coordination of care (as documented) at patient's floor/unit and/or counseling patient: Coding Level of Care Code 54535 SUB INP/OBS CARE 235MIN Diagnoses Diverticulitis of colon with perforation K57.20 Uncontrolled pain R52 Hypertension I10
--- NOTE | 2024-08-16 11:30 | Surgery Progress Note ---
Date of Service August 16, 2024 Assessment & Plan (1) Diverticulitis of colon with perforation: Plan: avss Leukocytosis resolved responding to abx likely perforation occurred days ago Plan: Full liquids for lunch if does well could possibly do low fiber for dinner continue IV abx ambulate Colace BID, avoid laxatives continue medical management will need colonoscopy in 6-8 weeks low fiber diet on discharge can consider surgical follow-up given recurrent episodes of diverticulitis in last 3 months although could have been smoldering diverticulitis not completed treated with Oral antibiotics that led to this admission. Discussed outpatient surgery follow-up vs colorectal follow-up if interested in discussion of any surgical resection. [facility] surgery team on for the weekend Discussed with Dr. Vicente who agrees with above. Admission and Anticipated Discharge Date Admission Date: August 12, 2024 Subjective feeling better, cramping pain in waves then resolved, no constant abdominal pain tolerated clear liquids hungry ambulating and urinating without difficulty +flatus and bm Physical Exam Constitutional: WD/WN, vitals as above + obese, cooperative and comfortable; no acute distress and not ill appearing Respiratory: normal respiratory effort; no respiratory distress and no labored breathing Gastrointestinal (Abdomen): Inspection/Auscultation: abdomen normal to inspection; abdomen not distended Percussion/Palpation: + abdomen tender (left mid to LLQ) and abdomen soft; no guarding, abdomen not rigid and abdomen not firm Skin: no rashes, warm and dry Psychiatric: A+Ox3, euthymic affect Results & Data Vital Signs (Past 12 Hours) Vital Signs Temp Pulse Resp BP BP Pulse Ox O2 Del Method 08/16/24 11:10 36.9 C 83 16 130/88 98 Room Air 08/16/24 07:22 36.9 C 80 14 124/80 96 Room Air Laboratory Results 08/16/24 Range/Units 05:37 WBC 9.04 (4.8-10.8) K/ul RBC 4.16 L (4.70-6.10) M/uL Hgb 11.7 L (14.0-18.0) g/dl Hct 34.3 L (42.0-52.0) % MCV 82.5 (80.0-100.0) fL MCH 28.1 (25.0-34.0) pg MCHC 34.1 (32.0-36.0) g/dL RDW Std Deviation 37.5 (36.4-46.3) fL RDW Coeff of Renetta 12.5 (11.5-14.5) % Plt Count 313 (130-400) K/uL MPV 9.2 L (9.4-12.4) fL Sodium 140 (136-145) mmol/L Potassium 3.8 (3.5-5.1) mmol/L Chloride 106 (98-107) mmol/L Carbon Dioxide 27 (21-32) mmol/L Anion Gap 7 (3-11) BUN 8 (6-23) mg/dl Creatinine 0.91 (0.6-1.4) mg/dl Est Cr Clr Drug Dosing 136.4 ml/min eGFR 114.13 BUN/Creatinine Ratio 8.8 L (10-20) Glucose 145 H (70-99(Fasting)) mg/dl Calcium 8.4 L (8.6-10.3) mg/dl
[2024-08-17] MEDS: KETOROLAC TROMETHAMINE 15 MG/ML VIAL IV ONE ×2 (07:30→10:48)
[2024-08-17 07:48] VITALS: RESP 18
[2024-08-17] MEDS: lisinopril 5 MG TAB PO SCH (09:13)
[2024-08-17 11:50] VITALS: PULSE 76; TEMP 97.9; O2SAT 98
[2024-08-17 14:06] VITALS: BP 145/88
--- NOTE | 2024-08-17 14:20 | Surgery Progress Note ---
<Statement entered by Lucero Gresham DO - 08/17/24 14:35> I have seen and examined this patient this am and I agree with this plan Date of Service August 17, 2024 Assessment & Plan (1) Diverticulitis of colon with perforation: Plan: patient with diverticulitis with microperf WBC yesterday 9. today vitals are stable pt feeling overall improvement in symptoms tolerating advancing diet to low fiber recommend complete course of abx transition to po for home will need outpatient colonoscopy in 6-8 weeks dispo home on low fiber diet Admission and Anticipated Discharge Date Admission Date: August 12, 2024 Subjective Patient is doing fairly well. Has some intermittent episodes at night where he has abdominal cramping then it passes. Overall his pain is much improved. He is tolerating low fiber, no nausea/vomiting. + bowel function Physical Exam 2 Physical Exam: awake/alert, sitting up in bed eating lunch Gastrointestinal (Abdomen): Percussion/Palpation: abdomen soft Results & Data Vital Signs (Past 12 Hours) Vital Signs Temp Pulse Pulse Resp BP BP Pulse Ox 08/17/24 14:04 97.9 F 76 89 18 145/88 H 98 08/17/24 11:48 97.9 F 76 18 148/90 H 98 08/17/24 07:47 97.7 F 89 18 145/88 H 97 O2 Del Method 08/17/24 14:04 08/17/24 11:48 Room Air 08/17/24 07:47 Room Air PG Care Time/CCT Total # of Minutes Spent Total Time Spent with Patient: Total time spent is greater than 50% in coordination of care (as documented) at patient's floor/unit and/or counseling patient: Coding Level of Care Code 84718 SUB INP/OBS CARE 05/04MIN Diagnoses Diverticulitis of colon with perforation K57.20
--- NOTE | 2024-08-17 15:54 | Discharge Summary ---
Discharge Summary Date of Service August 17, 2024 Principal Dx & Hospital Course #1 = Principal Diagnosis (1) Diverticulitis of colon with perforation: (2) Uncontrolled pain: (3) Hypertension: Plan Patient is a 33-year-old male with past medical history of hypertension, diverticulitis and GERD. He presented due to upper quadrant abdominal pain and was found to have acute diverticulitis on CT A/P. Due to worsening pain (especially in relation to prior episodes), a repeat CT scan was performed which showed macroperforation with small amount of free intraperitoneal air. General surgery was consulted at that time. No emergent surgical intervention required but the surgical team continued to follow along with care. Leukocytosis resolved 08/15, remained afebrile. #Diverticulitis/uncontrolled pain Treated with IV ciprofloxacin and Flagyl while inpatient. Discharged on p.o. ciprofloxacin 500 mg twice daily and p.o. Flagyl 500 mg 3 times daily through 08/25/2024 for total of 14-day antibiotic course Continue Colace BID, avoid laxatives during acute episode Well-tolerated advancement to low fiber diet. Instructed to follow a low fiber diet for at least 1 month Zofran 4 mg every 6 hours as needed nausea Pain regimen on discharge: Tylenol first-line, Motrin second line, Toradol 10 mg p.o. Q6H PRN breakthrough pain Recommend outpatient GI follow-up in 5-7 days from discharge. Recommend colo noscopy in 6-8 weeks Recommend referral to Dr. Bar at [facility] colorectal surgery given third episode of diverticulitis since May 2024 #HTN Continue lisinopril 5 mg daily #GERD Continue PPI #ADHD Continue Adderall as needed VTE ppx: SCDs, low risk, encourage ambulation Dispo: Discharged home 08/17 Notes For Next Care Provider Recommend close outpatient GI follow-up, colonoscopy in 6-8 weeks, and referral to colorectal surgery at [facility] Medication Changes From Visit Ciprofloxacin 500 mg twice daily through 08/25 Metronidazole 500 mg 3 times daily through 08/25 Toradol 10 mg p.o. every 6 hours as needed for breakthrough pain Zofran 4 mg every 6 hours as needed nausea Admission HPI Per Admitting Provider Patient is a 33-year-old male with past medical history of hypertension and GERD. He presented due to upper quadrant abdominal pain and was found to have acute diverticulitis. He is being admitted due to uncontrolled pain. Patient seen at bedside with his father in law present. He stated at 230 this afternoon he developed sudden onset sharp achy pain of his lower abdomen right below his umbilicus behind his groin. This is typically where he has pain with a diverticulitis flareup. He stated the pain with this flareup is more severe than previous. He stated this flareup feels different than previous as typically it is gradual and dull and with diarrhea. He stated he has not had a bowel movement in approximately 24 hours and feels mildly constipated. He de nies any blood in stool with previous bowel movement. He does endorse intermittent nausea that is currently improved. Pain is currently improved but present. He denies any dizziness, lightheadedness, chest pain, shortness of breath. He denies nicotine or daily alcohol use. He does not use oxygen at baseline. He wishes to be full code. Discharge Exam General: No acute distress, nondiaphoretic, well-developed, well-nourished. Cardiac: Regular rate and rhythm without murmurs gallops or rubs. Pulm: Clear to auscultation bilaterally without wheezes, rales or rhonchi. Normal respiratory effort. 98% on room air. Abdominal: Soft, nondistended. Mild tenderness to deep palpation of LLQ. Bowel sounds present x 4 quadrants. No guarding or rebound tenderness. Neuro: A&O x3. No focal neurological deficits. Discharge Plan Discharge Items Patient Disposition: Home - Self-Care Reason For Visit: DIVERTICULITIS , UNCONTROLLED PAIN Discharge Diagnosis: Diverticulitis with macroperforation Condition on Discharge: Good Activity: Resume your previous activity Non-emergency contact: Primary Care Provider and Surgeon Call non-emergency contact if: you have any medication questions, your symptoms worsen, your pain is not controlled, your pain is worsening, you have a fever and your temperature is above 101 Follow-up/Referrals: Carlos Vicente MD [Physician] - (Follow-up in 5-7 days) Kendra Lau DO [Primary Care Provider] - (Follow-up in 1-2 weeks) Diet: Low Fiber Diet Comment: Low fiber diet x 1 month at least Addtl Attending Provider Instructions: Chris Paz were admitted to the hospital with diverticulitis, complicated by a macroperforation. You were treated conservatively with IV antibiotics and improved without needing surgery. You will be discharged with oral antibiotics to continue taking at home to complete a total of 2-week course. It is very important that you follow a low fiber diet for at least 1 month - a handout with low fiber diet details has been attached to your discharge papers. It is important that you complete your course of antibiotics as directed. Not completing your antibiotics can result in the infection returning and/or can make future infections harder to treat. Upon discharge from the hospital: * Take ciprofloxacin 500 mg TWICE daily through 08/25/2024. Take your evening dose tonight, 08/17. * Take metronidazole (Flagyl) 500 mg THREE times daily through 08/25/2024. Take your evening dose tonight, 08/17. * Use Tylenol as your first-line pain medication. Use Motrin as your second line pain medication. Use Toradol 10 mg every 6 hours as needed for breakthrough pain. * Takes Zofran 4 mg every 6 hours as needed for nausea. * Take Colace (stool softener) twice daily to prevent constipation. It is important to avoid laxatives during acute diverticulitis. * Follow-up with the general surgery team in 5-7 days. You can call their office to schedule your follow-up appointment. * Follow-up with your PCP in 1-2 weeks. * A referral to [facility] colorectal surgery will be made for you via our navigator. Please return to the hospital if you experience any of the following: Fever of 100.5 F or higher, severe abdominal cramping, persistent nausea with vomiting, bleeding from your rectum, chest pain, shortness of breath, lightheadedness, passing out, or any other symptoms concerning for you. It was a pleasure taking care of you while you were in the hospital! Pending Studies at Discharge: No Stand-Alone Forms: [employer], Work/School Release, Smoking Cessation Medications and DC Order Prescriptions: New docusate sodium 100 mg Capsule 100 mg PO BID Qty: 20 0RF ketorolac 10 mg tablet 10 mg PO Q8H PRN (Reason: pain) 5 Days Qty: 15 0RF ondansetron HCl 4 mg tablet 4 mg PO Q6H PRN (Reason: nausea and vomiting) Qty: 20 0RF ciprofloxacin HCl 500 mg tablet 500 mg PO BID Qty: 17 0RF metronidazole 500 mg tablet 500 mg PO TID Qty: 25 0RF Continued omeprazole 20 mg Tablet,Delayed Release (Dr/Ec) 20 mg PO DAILY dextroamphetamine-amphetamine 30 mg capsule,extended release 24hr 30 mg PO DAILY PRN (Reason: adhd) lisinopril 5 mg tablet 5 mg PO DAILY Discharge Orders: Discharge Order (Routine); Ordered 08/17/24 Ordered By: Kristine Taylor/Other Patient Handouts: Low-Fiber Diet, Diverticulitis Dc Admission Data Admit Date/Time: 08/12/24 00:00 Attending Provider: Roldan Moncada Admit Provider: Roldan Benson Primary Care Provider: Kendra Lau Other Providers: aCrlos Vicente; Lucero Gresham Other Interventions: Discharge Summary Assessment (RN) Last Done: 08/17/24 14:04 Hospital Stay Data Consultations 08/11/24 23:36 ED Decision to Admit Stat 08/13/24 16:19 Consult General Surgery Routine Diagnostic Imagining Performed Abdomen/Pelvis CT 08/11/24 19:00 Exam(s): CT ABDOMEN + PELVIS With Contrast IV Amt: optiray 320 90ml EXAM: CT Abdomen and Pelvis With Intravenous Contrast CLINICAL HISTORY: Reason for exam: abd pain, hx diverticulitis. TECHNIQUE: Axial computed tomography images of the abdomen and pelvis with intravenous contrast. CTDI is 27.81 mGy and DLP is 1475.49 mGy-cm. Automated exposure control was utilized for the study. A dose lowering technique was utilized adhering to the principles of ALARA. CONTRAST: Patient received optiray 320 90ml of IV contrast COMPARISON: CT abdomen/pelvis: 06/05/2024 FINDINGS: Image quality is somewhat degraded by motion artifact. Lung bases: Posteriorly subpleural mild atelectatic changes.. No mass. No consolidation. ABDOMEN: Liver: Mild steatosis. No mass. Gallbladder and bile ducts: Unremarkable. No calcified stones. No ductal dilation. Pancreas: Unremarkable. Absence of pancreatic tail. No mass. No ductal dilation. Spleen: Unremarkable. No splenomegaly. Adrenals: A 1.5 cm small incidental left adrenal adenoma. No right adrenal mass. Kidneys and ureters: Unremarkable. No solid mass. No hydronephrosis. Stomach and bowel: Unremarkable stomach and small bowel. Moderately increased colonic stool volume. Distal colonic/sigmoid diverticulosis coli. Redemonstrates proximal sigmoid wall thickening with perisigmoid fat stranding/mild uncomplicated acute diverticulitis. No obstruction. PELVIS: Appendix: No findings to suggest acute appendicitis. Bladder: A distended urinary bladder. No mass. Reproductive: Unremarkable as visualized. ABDOMEN and PELVIS: Intraperitoneal space: No free air. No significant fluid collection. Bones/joints: No acute fracture. No dislocation. Mild/moderate lumbar levoscoliosis. Soft tissues: Unremarkable. Vasculature: Unremarkable. No abdominal aortic aneurysm. Lymph nodes: Unremarkable. No enlarged lymph nodes. IMPRESSION: Colonic/sigmoid sclerosis with mild sigmoid diverticulitis. No abscess. . Electronically signed by: Dinesh Barraza MD, DABR 08/11/24 22:48 PM Abdomen/Pelvis CT 08/13/24 12:04 Clinical History: Pain Technique: Axial computed tomography images were obtained of the abdomen and pelvis after the administration of intravenous and oral contrast. Findings: The liver is overall of normal size, attenuation, and contour with no sign of cirrhosis or significant fatty infiltration. No liver mass lesion is seen. The portal vein is patent. The gallbladder appears unremarkable. No bile duct dilatation is noted. The spleen is of normal size. No focal splenic lesion is evident. The pancreas appears normal with no sign of acute or chronic pancreatitis and no mass lesion noted. The pancreatic duct is of normal caliber. The adrenal glands appear unremarkable. No definite renal or proximal ureteral calculi are seen on this contrast-enhanced study. There is no hydronephrosis or perinephric stranding. No renal mass lesion is identified. The aorta is of normal caliber. No abdominal adenopathy is seen. The stomach appears normal. There is no sign of small bowel obstruction. There is acute diverticulitis of the proximal sigmoid colon. There is a small amount of free intraperitoneal air and there is a small amount of ascites. There is a small collection of fluid and air in the sigmoid colon mesentery without a clear discrete abscess at this time. No distal ureteral or bladder calculi are seen. There is mild prominence of the wall of the urinary bladder with mild adjacent soft tissue stranding. No definite focal bladder mass lesion is evident. The iliac arteries are of normal caliber. No pelvic adenopathy is noted. There is mild bilateral lower lobe atelectasis. No fracture is identified. No focal osseous lesion is seen Impression: 1. Perforated acute diverticulitis, with a small amount of free intraperitoneal air 2. Small amount of ascites 3. Apparent mild bladder wall thickening with mild adjacent soft tissue stranding. This could be due to infectious cystitis ACT 112: Positive. There are findings on this exam that require communication between the performing entity and the patient following Patient Test Result Information Act ([place] ACT 112) guidelines. Electronically signed by John Trinidad 08-13-2024 4:14 PM Pending Results Patient Have Any Pending Studies at Discharge: No Discharge Instructions Given to Patient (Per Discharging Provider) Jackson, You were admitted to the hospital with diverticulitis, complicated by a macroperforation. You were treated conservatively with IV antibiotics and improved without needing surgery. You will be discharged with oral antibiotics to continue taking at home to complete a total of 2-week course. It is very important that you follow a low fiber diet for at least 1 month - a handout with low fiber diet details has been attached to your discharge papers. It is important that you complete your course of antibiotics as directed. Not completing your antibiotics can result in the infection returning and/or can make future infections harder to treat. Upon discharge from the hospital: * Take ciprofloxacin 500 mg TWICE daily through 08/25/2024. Take your evening dose tonight, 08/17. * Take metronidazole (Flagyl) 500 mg THREE times daily through 08/25/2024. Take your evening dose tonight, 5. * Use Tylenol as your first-line pain medication. Use Motrin as your second line pain medication. Use Toradol 10 mg every 6 hours as needed for breakthrough pain. * Takes Zofran 4 mg every 6 hours as needed for nausea. * Take Colace (stool softener) twice daily to prevent constipation. It is important to avoid laxatives during acute diverticulitis. * Follow-up with the general surgery team in 5-7 days. You can call their office to schedule your follow-up appointment. * Follow-up with your PCP in 1-2 weeks. * A referral to [facility] colorectal surgery will be made for you via our navigator. Please return to the hospital if you experience any of the following: Fever of 100.5 F or higher, severe abdominal cramping, persistent nausea with vomiting, bleeding from your rectum, chest pain, shortness of breath, lightheadedness, passing out, or any other symptoms concerning for you. It was a pleasure taking care of you while you were in the hospital! Supervising Physician Co-Signing Physician Notes Attending Attestation and Discharge Note: Chart reviewed, discharge care plan d/w PA Kristine Black. I agree w/ the mo components of her discharge documentation. Of note - I did not perform a bedside visit or physical examination on day of discharge. 33yo male with h/o HTN, prior episodes of sigmoid diverticulitis, & GERD who presented with abdominal pain. Found to have uncomplicated sigmoid diverticulitis on admission CT. Initial CT did not show any complicating micro or macro perforation, abscess, or phlegmon. Initiated on bowel rest, IV fluids, pain meds, and IV cipro/flagyl. On 08/13/24 his abd pain was not improving and actually worse. Thus, repeat CT a/p was obtained on 08/13/24. This showed a small amount of pneumoperitoneum as a result of perforation from the sigmoid diverticulitis. No abscess seen. General surgery was consulted. Fortunately the patient's pain gradually improved, leukocytosis improved then normalized, and he was able to be restarted on clears. Diet was slowly advanced by gen surg. He was tolerating low fiber diet on day of discharge without any worsening in his abdominal symptoms. He did not require any surgical intervention while hospitalized. Given that this is his 3rd documented case (via CT scan) of sigmoid diverticulitis - and this episode was complicated by perforation - we will refer him to [facility] [place]-[facility] to discuss whether elective sigmoid resection is needed. He will need outpatient colonoscopy in about 2 months regardless. He was discharged to home on cipro/flagyl by mouth for additional 7 days; this will complete 14 days in total of abx. He should remain on low fiber diet for at least 10-14 days. Roldan Moncada MD Total Time Total Time Spent Total Time Spent (In Minutes): Greater than 30 minutes spent completing this discharge process including direct patient care, medication reconciliation, documentation, review of labs and images, and coordination of care. Coding Level of Care Code 52087 INP/OBS DISCH >30 MIN Diagnoses Diverticulitis of colon with perforation K57.20 Uncontrolled pain R52 Hypertension I10
== END 2024-08-17 14:54 | disposition home or self-care (01) | DRG 392 ==
LOC: ED 18:05 → SUATTDRO 08-12 → 3E 08-12
DX: K57.20 Diverticulitis of large intestine with perforation and abscess without bleeding; F90.9 Attention-deficit hyperactivity disorder, unspecified type; Z88.5 Allergy status to narcotic agent; Z88.0 Allergy status to penicillin; K21.9 Gastro-esophageal reflux disease without esophagitis; Z79.899 Other long term (current) drug therapy; I10 Essential (primary) hypertension